=== PATIENT | male | born 1950 | race Caucasian/White ===

== ENCOUNTER 2023-03-26 13:00 | Outpatient (AMB) | payer BC, SELFPAY ==
--- NOTE | 2023-03-26 13:03 | MHC.AM.SUB ---
Intake Vital Signs 03/26/23 13:09 03/26/23 14:02 BP 170/98 H 130/78 Blood Pressure Location Lt radial Lt radial Position Sitting Sitting Pulse 82 Pulse Source Pulse Oximeter Pulse Oximetry (%) 98 Oxygen Delivery Method Room Air Intake Visit Reasons: MAT Intake Intake Note: the patient presents for a mat intake Metal Checker Required: No Allergies No Known Allergies Allergy (Verified 03/26/23 13:49) Do you need a note to return to daycare/school/sports/work: No HPI MAT Intake HPI Details Patient presents for intake and evaluation of alcohol use He reports his wants him to stop drinking Drinking btwn 2-4 drinks almost every day since the age of 22 Denies any history of withdrawal or negative impact on his responsibilities However, he does have some chronic health issues which started his wifes concern Medical History: -All providers in [facility], including primary care -Reports dx of CKD (unknown stage), -Reports liver disease --not yet cirrhosis per his report -Reports recent cardiac stent placement unable to obtain full med list as patient did not recall all of his medications or their doses He does note the following: clopiderol atorvastatin effexor valsartan/hydro BH History: -reporting recurrent depression -numerous medication trials (12 per his report) No history of treatment for alcohol withdrawal Social History - and retired -3 children (one son still lives with them) 33 with down syndrome Discussed goals related to this visit and patient reporting he was unsure. Quite guarded during his visit. Reporting that he would like to have more control of my drinking, if I have one beer I don't automatically want to have a second Inquired if he has tried any strategies to address this and he has not. Discussed possibly having a glass of water or some other beverage before opening another beer. Patient interested in medication options, reviewed medications for alcohol use disorder and patient would like to trial Naltrexone Reviewed dosing, side effects and goals of treatment Several times during visit patient alluded to his controlling everything in his life. This marketing writer inquired if he has discussed this with her as making changes in his life, including stopping drinking, can be challenging if he is not committed to it for himself. *Patient inquiring if this marketing writer would be sending notes to his other providers. Informed patient that this would not be an issue if he provided a SONYA and where to send notes. Patient voiced displeasure with this. Review of Systems Const Reports as per HPI Psych Reports depression and Reports irritability Physical Exam Vital Signs: Last Vital Signs Pulse 82 03/26/23 13:09 BP 130/78 03/26/23 14:02 Pulse Ox 98 03/26/23 13:09 Oxygen Delivery Method Room Air 03/26/23 13:09 Const General: cooperative and healthy appearing Nutritional Appearance: average body habitus Orientation/consciousness: patient oriented x3 Limitations: no limitations Neuro General: patient oriented x3 Psych Appearance: well kempt Speech and movement: Clear speech present Affect: Blunted affect present Attitude: Guarded attititude/behavior present Assessment & Plan Assessment & Plan (1) Alcohol use disorder, mild, abuse: Code(s): F10.10 - Alcohol abuse, uncomplicated Plan: trial naltrexone --while not recommended with liver disease, in this case the benefits outweigh the risk follow up 3 weeks provided information on TMS --for depression Medications: New naltrexone take 1/2 tab daily for 3 days then increase to one tab daily 50 mg PO DAILY 30 tabs 0RF Coding Level of Care Code New Pt Level 4 (47600) Diagnoses Alcohol use disorder, mild, abuse F10.10
[2023-03-26 13:09] VITALS: BP 170/98; PULSE 82; O2SAT 98
[2023-03-26 14:02] VITALS: BP 130/78
== END 2023-03-26 14:05 | disposition home or self-care (01) ==
PROVIDERS: Visit Provider Nurse Practitioner Psychiatric/Mental Health
DX: F10.10 Alcohol abuse, uncomplicated (principal)
CPT/HCPCS: 99204

== ENCOUNTER → 2023-03-26 13:00 | Outpatient (BNVA) | payer BC, SELFPAY | PROVIDERS: Visit Provider Nurse Practitioner Psychiatric/Mental Health ==

== ENCOUNTER 2023-05-26 10:02 | Outpatient (AMB) | payer MEDICARE, SELFPAY ==
--- NOTE | 2023-05-26 10:06 | A.OFFVISCC_ITS ---
Intake Vital Signs 05/26/23 10:12 BP 134/82 Blood Pressure Location Lt radial Position Sitting Pulse 80 Pulse Source Pulse Oximeter Pulse Oximetry (%) 99 Oxygen Delivery Method Room Air Intake Visit Reasons: MAT Intake Note: the patient presents for a mat visit Health And Wellness Advisor Required: No Allergies No Known Allergies Allergy (Verified 05/26/23 10:07) Medication List - Last Reconciled 05/26/23 by Carolyn Brown NP aspirin 81 mg PO DAILY atorvastatin 40 mg PO DAILY clopidogrel 75 mg PO DAILY hydrochlorothiazide 50 mg PO DAILY naltrexone 50 mg PO DAILY venlafaxine 100 mg PO DAILY Do you need a note to return to daycare/school/sports/work: No HPI MAT HPI Details Patient presents for AUD treatment and follow up Reports he feels as though the naltrexone has cut down the need or his desire for alcohol Reports he does not need as much to achieve same effects Does not feel his drinking is problematic, reports his has a problem with his drinking He has resorted to hiding it from her because she nags and then she gets upset when she notices the level in his bottles is decreasing with his alcohol use He wants better control with his drinking but is unable to elaborate or identify any clear cut goals He continues to have 2-3 drinks daily. Slightly guarded and difficult to engage Review of Systems Const Reports as per HPI Physical Exam Vital Signs: Last Vital Signs Pulse 80 05/26/23 10:12 BP 134/82 05/26/23 10:12 Pulse Ox 99 05/26/23 10:12 Oxygen Delivery Method Room Air 05/26/23 10:12 Const General: cooperative and no acute distress Resp Effort & Inspection: normal respiratory effort Psych Appearance: grossly normal Mental Status: mental status grossly normal Speech and movement: Slowed speech present (Psych) Affect: Blunted affect present Attitude: Guarded attititude/behavior present Results AMB 14 Panel Urine Drug Screen Urine Marijuana (THC) Negative Last Edit by Hanh Walsh CMA on 05/26/23 10:14 Urine Cocaine Negative Last Edit by Hanh Walsh CMA on 05/26/23 10:14 Urine Morphine Negative Last Edit by Hanh Walsh CMA on 05/26/23 10:14 Urine Methamphetamine Negative Last Edit by Hanh Walsh CMA on 05/26/23 10:14 Urine Amphetamine Negative Last Edit by Hanh Walsh CMA on 05/26/23 10:1 4 Urine Benzodiazepine Negative Last Edit by Hanh Walsh CMA on 05/26/23 10:14 Urine Barbiturates Negative Last Edit by Hanh Walsh CMA on 05/26/23 10: 14 Urine Methadone Negative Last Edit by Hanh Walsh CMA on 05/26/23 10:14 Urine Buprenorphine Negative Last Edit by Hanh Walsh CMA on 05/26/23 10 :14 Urine Tricyclic Antidepressant Negative Last Edit by Hanh Walsh CMA on 05/26/23 10:14 Urine MDMA Negative Last Edit by Hanh Walsh CMA on 05/26/23 10:14 Urine Oxycodone Negative Last Edit by Hanh Walsh CMA on 05/26/23 10:14 Urine Phencyclidine Negative Last Edit by Hanh Walsh CMA on 05/26/23 10 :14 Urine Propoxyphene Negative Last Edit by Hanh Walsh CMA on 05/26/23 10: 14 Results Reviewed Results Reviewed: Laboratory Last Values POC Urine Buprenorphine Negative 05/26/23 10:13 POC Urine Morphine Negative 05/26/23 10:13 POC Urine Oxycodone Negative 05/26/23 10:13 POC Urine Methadone Negative 05/26/23 10:13 POC Urine Propoxyphene Negative 05/26/23 10:13 POC Urine Barbiturates Negative 05/26/23 10:13 POC U Tricyclic Antidpr Negative 05/26/23 10:13 POC Urine PCP Negative 05/26/23 10:13 POC Ur Amphetamines Negative 05/26/23 10:13 POC Ur Methamphetamine Negative 05/26/23 10:13 POC Urine MDMA Negative 05/26/23 10:13 POC Ur Benzodiazepine Negative 05/26/23 10:13 POC Urine Cocaine Negative 05/26/23 10:13 POC Ur Marijuana (THC) Negative 05/26/23 10:13 Assessment & Plan Assessment & Plan (1) Alcohol use disorder, mild, abuse: Code(s): F10.10 - Alcohol abuse, uncomplicated Plan: -Discussed harm reduction techniques -Encouraged him to be honest with his about how he feels about her persistent nagging -Education provided about folic acid and thiamine, script sent to pharmacy -No naltrexone refill due at this time -Follow up 1 month Orders: Orders AMB 14 Panel Urine Drug Screen Today Z51.81 - Encounter for therapeutic drug level monitoring Medications: New thiamine HCl (vitamin B1) 100 mg PO DAILY 30 tabs 3RF folic acid 1 mg PO DAILY 30 tabs 3RF Coding Level of Care Code Est Pt Level 3 (23249) Diagnoses Alcohol use disorder, mild, abuse F10.10
[2023-05-26 10:12] VITALS: BP 134/82; PULSE 80; O2SAT 99
== END 2023-05-26 10:40 | disposition home or self-care (01) ==
PROVIDERS: Visit Provider Nurse Practitioner Family
DX: Z51.81 Encounter for therapeutic drug level monitoring (principal); F10.10 Alcohol abuse, uncomplicated
CPT/HCPCS: 99213

== ENCOUNTER → 2023-05-26 10:02 | Outpatient (BNVA) | payer MEDICARE, SELFPAY | PROVIDERS: Visit Provider Nurse Practitioner Family | DX: F10.10 Alcohol abuse, uncomplicated (principal); Z51.81 Encounter for therapeutic drug level monitoring; Z79.899 Other long term (current) drug therapy | CPT/HCPCS: 80305; 99212 ==

== ENCOUNTER 2023-07-24 09:03 | Outpatient (AMB) | payer MEDICARE, SELFPAY ==
--- NOTE | 2023-07-24 09:26 | MHC.AM.SUB ---
Intake Visit Reasons: MAT Tele Allergies No Known Allergies Allergy (Verified 05/26/23 10:07) [facility] HPI MAT Tele: Details: Patient presents for appointment via telehealth States he has been consuming 2-3 mixed drinks every night when he cooks, estimated approx 1.5-2 shots per drink. States he will also occasionally have a beer after working outside in the garden. Reports he has filled his naltrexone twice, but has felt there has been no noticeable difference in alcohol use/cravings States he wants more control over his drinking, but does not want to stop, states his has been critical of his alcohol use and this has resulted in some marital strife. Has recently started marriage counseling. Review of Systems Const Reports as per [facility] Telehealth Telehealth Telehealth Platform: Telephone Location of provider rendering services: practice address Location of patient: address on file Patient Identification confirmed using: Name, : Yes Telehealth method: voice only Patient verbally consented to treatment: Yes Patient verbally consented to billing insurance company: Yes Patient informed of any privacy concerns related to visit: Yes Minutes spent on Phone/Video with Pt.: 25 Assessment & Plan Assessment & Plan (1) Alcohol use disorder, mild, abuse: Code(s): F10.10 - Alcohol abuse, uncomplicated Category: Medical Plan: -Discussed harm reduction techniques, advised him to try and substitute one of his drinks with a non-alcoholic drink -Provided him with psych prescriber resources, discussed the possibility of a bridge clinic referral should he obtain an appt with an outpatient psych prescriber -Reviewed with him not to rely on naltrexone alone, he is not interested in AA at this time or other recovery supports -Follow up as needed: pt unsure if he wants to continue care with [facility] after obtaining a psych prescriber
== END 2023-07-24 09:29 | disposition home or self-care (01) ==
PROVIDERS: Visit Provider Nurse Practitioner Family
DX: F10.10 Alcohol abuse, uncomplicated (principal)
CPT/HCPCS: 99443

== ENCOUNTER → 2023-07-24 09:03 | Outpatient (BNVA) | payer MEDICARE, SELFPAY | PROVIDERS: Visit Provider Nurse Practitioner Family ==

== ENCOUNTER 2024-04-06 12:49 | Outpatient (AMB) | payer MEDICARE, SELFPAY ==
--- NOTE | 2024-04-06 12:53 | A.OFFVIS_ITS ---
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 He describes his pains as sharp in nature. He has had cortisone injections in the past which gave him fairly good relief. He denies any locking or giving way. He wishes to hold off on surgery if at all possible. today as a new patient for evaluation of bilateral knee pain. know: saw at [facility], gave him injections MRI/PT/INJ: right knee aspiration? bilateral knee injections? sx/Injury: neither Allergies No Known Allergies Allergy (Verified 04/06/24 12:54) Medication List - Last Reconciled 04/06/24 by Dane Michaud MD atorvastatin 40 mg PO DAILY clopidogrel 75 mg PO DAILY folic acid 1 mg PO DAILY hydrochlorothiazide 50 mg PO DAILY naltrexone 50 mg PO DAILY thiamine HCl (vitamin B1) 100 mg PO DAILY venlafaxine 100 mg PO DAILY Physical Exam Vital Signs: BMI result Body Mass Index 27.2 Const Other: Well-nourished well-developed very friendly male awake alert and oriented x3 in no acute distress Extrem Other: Bilateral knee examination shows minimal effusions, palpable crepitus with range of motion, pain with range of motion, no instability Office Procedures AMB Joint Injection/Aspiration Joint Injection/Aspiration Primary Site: left knee Prep: site was prepped using aseptic technique Injected: 40 mg of, DepoMedrol and 1% plain lidocaine Procedure: The patient tolerated the procedure well Coding 31018 - Large joint Procedure code (CPT) selection complete AMB Joint Injection/Aspiration Joint Injection/Aspiration Primary Site: right knee Prep: site was prepped using aseptic technique Injected: 40 mg of, DepoMedrol and 1% plain lidocaine Procedure: The patient tolerated the procedure well Coding 82479 - Large joint Procedure code (CPT) selection complete Results Reviewed Results Reviewed: X-rays of the patient's bilateral knee show joint space narrowing chondral sclerosis, no acute bony abnormalities Assessment & Plan Assessment & Plan (1) Right knee pain: Code(s): M25.561 - Pain in right knee Category: Medical (2) Osteoarthritis of left knee: Code(s): M17.12 - Unilateral primary osteoarthritis, left knee Category: Medical (3) Osteoarthritis of right knee: Code(s): M17.11 - Unilateral primary osteoarthritis, right knee Category: Medical Plan Mr. Haney presents with bilateral knee pains due to osteoarthritis. The risks and benefits of bilateral knee cortisone injections were discussed at length with the patient. The patient wished to proceed. He tolerated the injections well. He will continue with his exercise program. He will contact me prior to his follow-up appointment in 3 months should any questions or concerns arise. Feel free to call me at any time should questions regarding his orthopedic management arise. I spent 21 minutes in reviewing the patient's records and imaging studies, seeing the patient and documenting in the medical record. Orders: Orders XR knee RT 3V Today M25.561 - Pain in right knee XR knee LT 3V Today M25.562 - Pain in left knee AMB Joint Injection/Aspiration Today M17.12 - Unilateral primary osteoarthritis, left knee AMB Joint Injection/Aspiration Today M17.11 - Unilateral primary osteoarthritis, right knee Coding Level of Care Code Est Pt Level 3 (92212) Complex EM visit Add On G2211 Diagnoses Right knee pain M25.561 Osteoarthritis of left knee M17.12 Osteoarthritis of right knee M17.11 CPT Codes Coding - 06047 Large joint: 45374 - Large joint ([id number]) Coding - 98692 Large joint: 21781 - Large joint ([id number])
[2024-04-06 13:12] VITALS: BMI 27.2
--- OUTSIDE RECORDS SUMMARY | 2024-04-06 14:10 | XMS_ITS | Continuity of Care Document ---
Author Organization [facility] Address [address] [place] [address]- Care Team Providers Care Blender/Braze Applicator Name Role Phone Mart Pimentel MD Primary Care Physician Encounter [facility] Date(s): 02/16/24 - 03/17/[address] [address] Encounter Type: Triage Allergies, Adverse Reactions, Alerts No Known Allergies Immunizations Given and Recorded Vaccine Date Status Refusal Reason influenza virus vaccine, inactivated 1 01/04/07 Gi rehan 1Admin Note: VIS 09/14/06 GIVEN TO PATIENT. Medications atorvastatin 20 mg oral tablet 1 tablet = 20 mg, By Mouth, Daily, # 30 tablet, 3 Refills, Maintenance, 11/06/22 10:18:00 AM EDT, Tablet, Partial fill upon patient request if the prescription is for a schedule II opioid drug. Start Date: 11/06/22 Stop Date: 03/06/23 Status: Ordered Quantity: 30.0 Unit: tablet Repeat number: 4 Indication: Essential (primary) hypertension clopidogrel 75 mg oral tablet 75 mg, 1, tablet, By Mouth, Daily, Call if any significant bleeding, # 90 tablet, Refills 3, Tot. Refills 3, Maintenance, 12/02/23 1:36:00 PM EDT, Route to Pharmacy Electronically, [facility]/pharmacy #[id number],Partial fill upon patient request if the prescription is for a schedule II opioid drug., 178, cm, 10/26/23 11:20:00 EDT, Height Start Date: 12/02/23 Stop Date: 11/26/24 Status: Ordered Quantity: 90.0 Unit: tablet Repeat number: 4 Indication: Essential (primary) hypertension duloxetine 60 mg oral enteric coated capsule TAKE 1 CAPSULE BY MOUTH EVERY DAY Start Date: 10/26/23 Status: Ordered Repeat number: 1 hydrochlorothiazide-valsartan 12.5 mg-160 mg oral tablet 1 tablet, By Mouth, Daily, # 30 tablet, 3 Refills, Maintenance, 11/03/23 2:45:00 PM EDT, Tablet, [id number], Partial fill upon patient request if the prescription is for a schedule II opioid drug., 1 tablet By Mouth Daily,x30 days, 178, cm, 10/26/23 11:20:00 EDT, Height Start Date: 11/03/23 Stop Date: 03/02/24 Status: Ordered Quantity: 30.0 Unit: tablet Repeat number: 4 nitroglycerin 0.4 mg sublingual tablet 1 tablet = 0.4 mg, Sublingual, Every 5 minutes, PRN for chest pain, # 100 tablet, 3 Refills, Maintenance, 11/06/22 10:43:00 AM EDT, Tablet, [id number], Partial fill upon patient request if the prescription is for a schedule II opioid drug., 172, cm, 11/06/22 9:54:00 EDT, Height Start Date: 11/06/22 Stop Date: 03/06/23 Status: Ordered Quantity: 100.0 Unit: tablet Repeat number: 4 Indication: Essential (primary) hypertension testosterone 20.25 mg/actuation (1.62%) transdermal gel APPLY 2 PUMPS DAILY TO ARM AVOID GEL EXPOSURE TO CHILDREN OR WOMEN Start Date: 10/26/23 Status: Ordered Repeat number: 1 Problem List Condition Confirmation Course Effective Dates Status H ealth Status Informant Depression Confirmed Active Elevated blood pressure Confirmed Active Epicondylitis Confirmed 2005 Active Hemorrhoids Confirmed Active Tinea unguium Confirmed Active Social History Social History Type Response Smoking Status Former smoker, quit more than 30 days ago entered on: 02/09/23 Sex Sex Representation Male (finding) Patient Care team information Care Team Personnel Name: Mart Pimentel MD Position: [facility] Physician - Pediatrics Member Role: PCP Address: [address] [place] [address] Telecom: Care Team Related Persons Name: FERN DODD Name: KARISSA DODD Name: CHARLES WOODS Insurance Providers Guarantor name: WHITLEY DODD Health Plan Information #: 1 Payer: KALLI Member Number: NA Policy Number: NA Group Number: NA
--- OUTSIDE RECORDS SUMMARY | 2024-04-06 14:10 | XMS_ITS | Clinical Summary ---
Author Organization [facility] Facility Address [address] [address] Care Team Providers Care Attendant Coin Operated Laundry Name Role Phone Mart Pimentel MD Primary Care Provider Allergies Active Allergy Reactions Criticality Noted Date Comments Bupropion Other (see comments) 05/17/2020 Lisinopril Other (see comments) 05/17/2020 Medications atorvastatin (LIPITOR) 20 MG tablet Take 20 mg by mouth 1 (one) time each day Active clopidogrel (PLAVIX) 75 MG tablet Take 75 mg by mouth 1 (one) time each day Active folic acid (FOLVITE) 1 MG tablet Take 1 mg by mouth 1 (one) time each day Active valsartan-hydro CHLOROthiazide (DIOVAN-HCT) 160-25 MG per tablet Take 1 tablet by mouth 1 (one) time each day Active DULoxetine (CYMBALTA) [address] capsule Active Jardiance 10 MG tablet TAKE 1 TABLET BY MOUTH IN THE MORNING 30 tablet 5 12/22/2023 Active Active Problems Problem Noted Date Diagnosed Date Epicondylitis 05/22/2021 Hemorrhoid 05/22/2021 Hypertensive disorder 05/22/2021 Stage 3a chronic kidney disease 05/22/2021 Arthritis of knee 09/07/2020 Effusion of joint of right knee 09/07/2020 Stage 3b chronic kidney disease 06/15/2020 Renal osteodystrophy 06/15/2020 Hypertensive chronic kidney disease 06/15/2020 Benign essential hypertension 05/17/2020 Chronic kidney disease stage 3 05/17/2020 Serum creatinine above reference range Immunizations Name Administration Dates Next Due Influenza, Unspecified 01/04/2007 Family History Medical History Relation Comments Heart disease Father Hypertension Father Relation Status Comments Father Social History Tobacco Use Types Packs/Day Years Used Date Smoking Tobacco: Former Cigarettes Q uit: 03/02/1988 Smokeless Tobacco: Never Alcohol Use Standard Drinks/Week Comments Yes 0 (1 standard drink = 0.6 oz pure alcohol) Alcoholic Drinks/day: 3 or more drinks per day Sex and Gender Information Value Date Recorded Sex Assigned at Not on file Legal Sex Male 4:52 PM EST Gender Identity Not on file Sexual Orientation Not on file Last Filed Vital Signs Vital Sign Reading Time Taken Comments Blood Pressure 142/80 11/19/2023 2:08 PM EDT Pulse 78 11/19/2023 2:08 PM EDT Temperature - - Respiratory Rate - - Oxygen Saturation 97% 11/19/2023 2:08 PM EDT Inhaled Oxygen Concentration - - Weight 83.5 kg (184 lb) 11/19/2023 2:08 PM EDT Height 175.3 cm (5' 9 ) 05/19/2019 12:00 PM EDT Body Mass Index 27.17 05/19/2019 12:00 PM EDT Plan of Treatment Upcoming Encounters Date Type Department Care Team (Late st Contact Info) Description 11/17/2024 1:00 PM EDT Office Visit [facility] [address] [place] [phone] Dallas Flannery MD [address] [phone] Health Maintenance Due Date Last Done Comments Pneumococcal Vaccine: 65+ Ye ars (1 of 2 - PCV) 1957 Colorectal Cancer Screening: Annual FOBT 2000 Colorectal Cancer Screening: Colonoscopy 2000 Colorectal Cancer Screening: Sigmoidoscopy 2000 Influenza Vaccine (#1) 2023 01/04/2007 Hepatitis B Vaccine Aged Out No longe r eligible based on patient's age to complete this topic Insurance [facility] Care Teams Attendant Coin Operated Laundry Relationship Specialty Start Date End Date Mart Pimentel MD PCP - General 03/12/20
--- OUTSIDE RECORDS SUMMARY | 2024-04-06 14:10 | XMS_ITS | Clinical Summary ---
Author Organization [facility] Address [address] [place] [address] Care Team Providers Care Computational Scientist Name Role Phone Mart Pimentel MD Primary Care Provider [phone] Allergies Active Allergy Reactions Criticality Noted Date Comments Bupropion Other (See Comments) 05/17/2020 Lisinopril Other (See Comments) 05/17/2020 Medications Medication Sig Dispensed Refills Start Date End Date Status escitalopram (LEXAPRO) tablet 10 mg Take 1 tablet by mouth. 0 Active valsartan-hydroCHLORO thiazide (DIOVAN-HCT) 320-25 MG per tablet 0 08/23/2020 Acti ve HYDROcodone-acetamino phen (NORCO) 5-325 MG per tablet 1-2 tabs p.o. every 6 hours as needed for pain. May fill for lesser quantity. 20 tablet 0 11/09/2020 Active valsartan (DIOVAN) tablet 320 mg Take 320 mg by mouth. 0 12/08/2012 Active citalopram (CeleXA) 20 MG tablet Take 20 mg by mouth. 0 12/08/2012 Active Active Problems Problem Noted Date Diagnosed Date Effusion of right knee joint 08/16/2021 Patellofemoral arthritis of right knee Effusion of right knee joint 09/07/2020 Social History Tobacco Use Types Packs/Day Years Used Date Smoking Tobacco: Never Assessed Sex and Gender Information Value Date Recorded Sex Assigned at Not on file Gender Identity Not on file Sexual Orientation Not on file Job Start Date Occupation Industry Not on file Not on file Not on file Last Filed Vital Signs Vital Sign Reading Time Taken Comments Blood Pressure - - Pulse - - Temperature - - Respiratory Rate - - Oxygen Saturation - - Inhaled Oxygen Concentration - - Weight 89.8 kg (198 lb) 08/16/2021 12:48 PM EDT Height 175.3 cm (5' 9 ) 08/16/2021 12:48 PM EDT Body Mass Index 29.24 08/16/2021 12:48 PM EDT Plan of Treatment Health Maintenance Due Date Last Done Comments Hepatitis C Screening 1950 COVID-19 Vaccine (#1) 1951 Depression Screening 1963 Preventative Health Evaluation 1969 DTap / Tdap / Td (1 - Tdap) 1970 Colon Cancer Screening (Colonoscopy) 1996 Shingrix-Zoster Vaccine (1 of 2) 2001 Fall Risk Assessment 2016 Pneumococcal Vaccine (1 of 1 - PCV) 2016 Influenza Vaccine (#1) 2023 01/04/2007 RSV Adult > 60+ Yrs or Pregn ant (1 - 1-dose 75+ series) 2026 Hepatitis B Vaccines Aged Out No long er eligible based on patient's age to complete this topic RSV Ped < 20 months Aged Out No longe r eligible based on patient's age to complete this topic Care Teams Computational Scientist Relationship Specialty Start Date End Date Mart Pimentel MD [address] [place] [address] PCP - General Internal Medicine 09/10/20
--- OUTSIDE RECORDS SUMMARY | 2024-04-06 14:10 | XMS_ITS | Continuity of Care Document ---
Author Organization [facility] Address [address] [address]- [facility] Name Relationship Address Phone WHITLEY DODD Personal Relationship Unknown Unavailable KARISSA DODD spouse Unknown Unavailable PEGGY, CHARLES unrelated friend Unknown Unavaila ble MIRAYENNI, FERN child Unknown Unavailable Care Team Providers Care Waiter/Waitress Tavern Name Role Phone Mart Pimentel MD Primary Care Physician Encounter [facility] Date(s): 02/17/24 - 03/18/[address] [address] Attending Physician: Anna Montiel Admitting Physician: Anna Montiel Referring Physician: AdmtrAnna Encounter Type: Triage Allergies, Adverse Reactions, Alerts [...] PM EDT, Route to Pharmacy Electronically, [facility]/pharmacy #[id number],Partial fill upon patient request if the prescription [...] Team Personnel Name: Mart Pimentel MD Position: [facility] Physician - Pediatrics Member Role: PCP Address: [address] [place], [place] [address] [address]- Telecom: Care Team Related Persons Name: FERN DODD Name: KARISSA DODD Name: CHARLES WOODS Insurance Providers Guarantor name: WHITLEY DODD Health Plan Information #: 1 Payer: NA Member Number: NA Policy Number: NA Group Number: NA
--- OUTSIDE RECORDS SUMMARY | 2024-04-06 14:10 | XMS_ITS | Continuity of Care Document ---
Author Organization [facility] Address [address] [place] [address] Care Team Providers Care Granulator Name Role Phone Mart Pimentel MD Primary Care Physician [phone] [place] [facility] [place] 02/11/24 - 03/12/24 [facility] [address] [place] [address] Encounter Type: Triage Allergies, Adverse Reactions, Alerts [...] 1:36:00 PM EDT, Route to Pharmacy Electronically, [facility]/pharmacy #[id number],Partial fill upon patient request if the prescription [...] Refills, Maintenance, 11/03/23 2:45:00 PM EDT, Tablet, [facility]/pharmacy #[id number], Partial fill upon patient request if [...] Refills, Maintenance, 11/06/22 10:43:00 AM EDT, Tablet, [facility]/pharmacy #[id number], Partial fill upon patient request if [...] Team Personnel Name: Mart Pimentel MD Position: [facility] Physician - Pediatrics Member Role: PCP Address: [address] [place] [address]- Telecom: Care Team Related Persons Name: FERN DODD Name: KARISSA DODD Name: CHARLES WOODS Insurance Providers Guarantor name: WHITLEY DODD [facility] Plan Information #: 1 Payer: NA Member Number: NA Policy Number: NA Group Number: NA
== END 2024-04-06 13:57 | disposition home or self-care (01) ==
PROVIDERS: Visit Provider Orthopaedic Surgery
DX: M17.0 Bilateral primary osteoarthritis of knee (principal)
CPT/HCPCS: 20610; 99213

== ENCOUNTER → 2024-04-06 12:51 | Outpatient (BNV) | payer MEDICARE, SELFPAY | PROVIDERS: Visit Provider Specialist | DX: M25.562 Pain in left knee (principal); M25.561 Pain in right knee | CPT/HCPCS: 73562 ==

== ENCOUNTER 2024-04-06 13:00 | Outpatient (REF) | payer MEDICARE, SELFPAY ==
--- NOTE | ~2024-04-06 | XR_ITS ---
CLINICAL HISTORY: M25.561 - Pain in right knee 3 view right knee Comparison: None Findings: Bones intact. No dislocations. No significant arthritic change or erosions. No joint effusion. No radiopaque foreign body. There is regional arterial calcification. IMPRESSION: 1. No acute findings. This document has been electronically signed by: Angel Luis Atkins MD on 04/08/2024 08:04:34
--- NOTE | ~2024-04-06 | XR_ITS ---
CLINICAL HISTORY: M25.562 - Pain in left knee 3 view left knee Comparison: None Findings: No fractures or dislocations. No significant loss of joint space, osteophytes, or erosions. No joint effusion. No radiopaque foreign body. There is regional arterial calcification. IMPRESSION: 1. No acute findings. This document has been electronically signed by: Angel Luis Atkins MD on 04/08/2024 08:04:48
== END 2024-04-06 13:01 | disposition home or self-care (01) ==
LOC: HO.HOSX 13:00
PROVIDERS: Visit Provider Orthopaedic Surgery
DX: M25.562 Pain in left knee (principal); M25.561 Pain in right knee; M17.0 Bilateral primary osteoarthritis of knee
CPT/HCPCS: 20610; 73562; 99212; J1010; J2003

== ENCOUNTER 2024-06-14 09:47 | Outpatient (AMB) | payer MEDICARE, SELFPAY ==
[2024-06-14 09:50] VITALS: BMI 27.2
--- NOTE | 2024-06-14 09:50 | MHC.OFFVIS ---
Vital Signs 06/14/24 09:50 Height 5 ft 9 in Weight 184 lb BMI 27.2 Intake Visit Reasons: New prob-B/L thumb arthritis Intake Note: Dmitry 74 yr old male right hand dominant male presents today for a new problem visit for bilateral thumb O.A pain. Right is worse. States he is having trouble opening jars and gripping. States pain is on his CMC joint and MCP. Hx of injections in the past. States his last one was about 3-4 years ago. States injection gave him temporary relief. He is also having locking to his right ring finger. Denies numbness or tingling, Allergies No Known Allergies Allergy (Verified 06/14/24 09:56) HPI HPI New prob-B/L thumb arthritis: Details: Dmitry is a 74 year old right hand dominant man who presents with complaints of bilateral basal joint OA. He complains of pain at the base of his thumbs, R>L, worse with pinching or gripping activities. He says he struggles to open jars or perform similar actions due to his pain. He complains of being more bothered by sudden sharp pain with activities, opposed to a constant ache. He also complains of occasional painful locking of his right index & ring fingers. He says he has a Hx of injections in the past, at an outside clinic. His last injections were in ~1220-3674, with good relief. He denies any numbness or tingling. 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 [facility] Social History (Updated 06/14/24 @ 09:57 by Bushra Pacheco [facility]) Current occupational status: retired Current occupation: rt hand Review of Systems Const All systems reviewed & are unremarkable except as noted in HPI and below Physical Exam Vital Signs: BMI result Body Mass Index 27.2 Const General: cooperative, healthy appearing and no acute distress Orientation/consciousness: patient oriented x3 HEENT Head: Yes normocephalic and Yes atraumatic Eyes EOM: EOMs intact bilaterally Resp Effort & Inspection: normal respiratory effort and able to speak in complete sentences Cardio Jugular venous distension: no JVD Skin General skin exam: turgor normal Rashes: no rashes Neuro General: patient oriented x3 Extrem Other: Evaluation of Bilateral Upper Extremity: The patient is alert, oriented, and in no acute distress Neuro: Median, Ulnar, Radial nerves motor and sensory intact and sensation is normal to the tips of all digits Vascular: Cap refill brisk ROM: He can make a fist and extend all his digits No locking or catching seen today in clinic Tightness over dorsum of both thumbs when flexing his thumbs Skin: No lacerations or abrasions. General: No Ecchymosis. No Erythema or evidence of infection. Mild tenderness over the basal joints bilaterally Pos shoulder sign Pos CMC grind No tenderness over the MCP joint No tenderness over the 1st dorsal compartment Negative Cabrera test bilaterally No tenderness over the a1 kavin Radiographs: 3 views of the right hand, with attention to the thumb, were taken and viewed by me today in clinic. They show basal joint arthritis with joint space narrowing, subchondral sclerosis, and early osteophyte formation. 3 views of the left hand, with attention to the thumb, were taken and viewed by me today in clinic. They show basal joint arthritis with joint space narrowing, subchondral sclerosis, and early osteophyte formation. Psych Appearance: grossly normal Affect: normal affect Attitude: cooperative Office Procedures AMB Fracture Care Details: No fracture, injection Fracture Billing Code: Fracture Billing Code Assessment & Plan Assessment & Plan (1) Arthritis of carpometacarpal (CMC) joint of right thumb: Code(s): M18.11 - Unilateral primary osteoarthritis of first carpometacarpal joint, right hand Category: Medical (2) Arthritis of carpometacarpal (CMC) joint of left thumb: Code(s): M18.12 - Unilateral primary osteoarthritis of first carpometacarpal joint, left hand Category: Medical Plan Assessment & Plan: 1. Right basal joint osteoarthritis This is his primary complaint today I educated him about this condition I discussed operative and non-operative treatment options The patient would like to proceed with an injection, beginning with his right side I discussed activity modification, they should limit or avoid any heavy or repetitive pinching or gripping activities He says he has a comfort cool brace at home, he should wear this with daily activities. I ordered OT hand therapy to work on ROM, stretching, & normalizing function. Injection #1: The risks and benefits of a steroid injection including but not limited to risk of damage to blood vessels, nerve, tendon, infection, skin bleaching, persistent or worsening pain, and failure to improve symptoms were discussed with the patient and they wish to proceed with the steroid injection. Once consent was obtained the skin over the dorsum of the Right basal joint was sterilely prepped. The joint was then injected with a combination of 1 mL of (40 mg/ml} Depo-Medrol and 1% plain Lidocaine. The patient appears to have tolerated the procedure well and with no complications. He had good early relief before leaving clinic today. He knows that they may not have another steroid injection into this joint for least 4 months. 2. Left basal joint osteoarthritis He will follow up prn for this Scribed for Natalie Boss MD by Gutierrez Clifton, medical editor, on 06/14/24 at 10:05 AM, EST. Orders: Orders OT Evaluation and Treatment Today M18.11 - Unilateral primary osteoarthritis of first carpometacarpal joint, right hand, M18.12 - Unilateral primary osteoarthritis of first carpometacarpal joint, left hand XR hand RT min 3V Today M79.641 - Pain in right hand XR hand LT min 3V Today M79.642 - Pain in left hand Coding Level of Care Code New Pt Level 4 (90269) Diagnoses Arthritis of carpometacarpal (CMC) joint of right thumb M18.11 Arthritis of carpometacarpal (CMC) joint of left thumb M18.12 CPT Codes Fracture Care - Fracture Billing Code: Fracture Billing Code ([id number])
--- OUTSIDE RECORDS SUMMARY | 2024-06-14 11:13 | XMS_ITS ---
Author Organization [facility] Address [address] [address] Care Team Providers Care Logistic Specialist Name Role Phone GIANCARLO BISHOP [phone] Prudencio ROSADO, Dallas Villagomez Unavailable REASON FOR VISIT Patient question/information Encounters Encounter Location Date Provider Diagnosis [facility] [address] [address] 11/09/2023 GIANCARLO BISHOP Plan Of Treatment No Information Progress Notes * WHITLEY DODD PDOB:1950 (73 yo M)Acc No.[id number]:11/09/2023 Patient:?WHITLEY DODD :1950???Age:73 Y???Sex:Male Address:[address] [place] [address] [place], [address] * true * Date:? Generated for Printi toni/Yuridia/eTransmitting on:?06/14/2024 11:13 AM EDT
--- OUTSIDE RECORDS SUMMARY | 2024-06-14 11:13 | XMS_ITS | Clinical Summary ---
Author Organization [facility] Address [address] [place] [address] Care Team Providers Care Ship Yard Electrical Person Name Role Phone Mart Pimentel MD Primary Care Provider [phone] Allergies Active Allergy Reactions Criticality Noted Date [...] age to complete this topic Care Teams Ship Yard Electrical Person Relationship Specialty Start Date End Date Mart Pimentel MD [address] [place] [address] PCP - General Internal Medicine 09/10/20
--- OUTSIDE RECORDS SUMMARY | 2024-06-14 11:13 | XMS_ITS | Clinical Summary ---
Author Organization [facility] Address [address] [address] Care Team Providers Care Bench Lathe Operator Name Role Phone Mart Pimentel MD Primary [...] 05/17/2020 Serum creatinine above reference range Immunizations Immunization Administration Dates Next Due Influenza, Unspecified 01/04/2007 [...] Visit [facility] [address] [place] [address] Dallas Flannery MD [address] [phone] Health Maintenance Due Date Last Done Comments Pneumococcal Vaccine: 50+ Ye ars (1 of 2 - PCV) 1970 Colorectal Cancer Screening: Annual FOBT 2000 Colorectal Cancer Screening: Colonoscopy 2000 Colorectal Cancer Screening: Sigmoidoscopy 2000 Influenza Vaccine (Season Ended) 2024 01/05/20 07 Hepatitis B Vaccine Aged Out No longe r eligible based on patient's age to complete this topic Insurance [facility] Care Teams Bench Lathe Operator Relationship Specialty Start Date End Date Mart Pimentel MD PCP - General 03/12/20
--- OUTSIDE RECORDS SUMMARY | 2024-06-14 11:14 | XMS_ITS | Patient Health Record ---
Author Organization [facility] Address [address] [place] [address] Care Team Providers Care Learning Disabilities Teacher Name Role Phone GIANCARLO HEWITT [phone] Dallas Flannery MD Unavailable Reason For Referral No Information Problems Problem Type SNOMED Code ICD Code Onset Dates Problem Status W/U Status Risk Notes Problem Chronic kidney disease stage 3 (disorder) (128053017) Chronic kidney disease, stage 3 unspecified (N18.30) 07/22/2022 Active confirmed Encounters Encounter Location Date Provider Diagnosis [facility] [address] [place] [phone] 08/10/2023 GIANCARLO HEWITT Chronic kidney disease, stage 3 unspecified N18.30 [facility] [address] [place] [phone] 07/01/2023 GIANCARLO HEWITT [facility] [address] [place] [phone] 07/08/2023 GIANCARLO HEWITT [facility] [address] [place] [phone] 07/29/2023 GIANCARLO HEWITT [facility] [address] [place] [phone] 07/30/2023 GIANCARLO HEWITT [facility] [address] [place] [phone] 08/10/2023 GIANCARLO HEWITT [facility] [address] [place] [phone] 08/14/2023 GIANCARLO HEWITT [facility] [address] [place] [phone] 11/09/2023 GIANCARLO HEWITT Assessments Encounter Date Diagnosis (ICD Code) Assessment Notes Treatment Notes Treatment Clinical Notes Section Notes 08/10/2023 Chronic kidney disease, stage 3 unspecified (ICD-10 - N18.30) Assessment / Plan We spent the first part of our discussion talking about [facility] and our goals. I emphasized that we focus on education and support for patients with kidney issues by connecting them with our navigators, who have personal and family experience with kidney disease. I explained that while we will discuss the status of his/her kidneys, nothing we are doing is a substitute for visits to nephrology and/or primary care physician. 1. CKD 3b. The exact cause is unknown, attributed to hypertension He sees Dr. Flannery regularly and has had a negative/normal work up (details not available to me) and kidney biopsy has specifically not been recommended. -We discussed potential dietary interventions for CKD last time. 2. Kidney Failure Risk: KFRE 0.98% and 3.04 at 2 and 5 years based on eGFR 44 and UACR 121 (not clear 121 is correct -- sap functional analyst error in notes). UACR needs repeat. 3. Kidney transplant candidacy: Apparent alcoholic use disorder will be a barrier, until he achieves remission. His liver disease when last assessed appears mild and shouldn't prevent txp unless it has progressed. More assessment would also be needed about his depression. 4. Reported alcoholic use disorder. and depression *He has made some progress and is discussing AA meetings with his counseslor. *He would like to see someone to discuss alternative agents to venlafaxine but has had trouble finding someone. At least one told him that he wasn't accepted to the practice for unclear reasons. Demetrice will work with him and [facility] to try to identify a psychiatrist or psychopharmacologist in his area that is 'in network' and accepting new patients. Our education and discussion will focus on: The importance of monitoring kidney function: GFR and Urine Albumin Creatinine Ratio Preventing progression of kidney disease through diet, and avoidance of nephrotoxins like IV contrast dye and other stressors such as dehydration that can cause Acute kidney injury Acidosis Management: keeping CO2 > 20-21 with plant based eating, Bicarbonate supplementation. Use of medications,on the basis of reduced GFR Importance of ongoing exercise Importance of regular follow up with primary vamp creaser Should renal function deteriorate, we can expand our discussion to: Transplant as a method of treating kidney failure vs living donor transplant Techniques to reduce waiting time: (1) Living donor search; (2) acceptance of KDPI >85% kidneys; (3) acceptance of HCV+ kidneys; (4) listing out of region. Postponing dialysis Pro's and con's of different forms of dialysis Indications to start dialysis Avoiding crash dialysis Incremental dialysis: twice a week vs three times per week Importance of preserving renal function even after dialysis starts Conservative management of advanced CKD, without dialysis Value of Support Groups Giancarlo Hewitt MD Plan Of Treatment No Information Insurance Providers Payer Name Payer Address Payer Phone Subscriber Number Group Number Insured Name Patient Relationship to Insured Coverage Start Date Coverage End Date [facility] [employer]age [id number] [place] [address] [id number] WHITLEY DODD Self - patient is the insured
--- OUTSIDE RECORDS SUMMARY | 2024-06-14 11:14 | XMS_ITS ---
Author Organization [facility] Address [address] [address] Care Team Providers Care Gauge And Weigh Machine Adjuster Name Role Phone HEMANT HEWITT Unavailable [phone] Prudencio ROSADO, [place] Unavailable Unavailable REASON FOR VISIT [facility] Follow Up Visit, (age) year old with with kidney disease for education and counseling regarding chronic kidney disease management including transplant as an option. Encounters Encounter Location Date Provider Diagnosis [facility] [address] [address] 08/10/2023 HEMANT HEWITT Chronic kidney disease, stage 3 unspecified N18.30 Assessments Encounter Date Diagnosis (ICD Code) Assessment Notes Treatment Notes Treatment Clinical Notes Section Notes 08/10/2023 Chronic kidney disease, stage 3 unspecified (ICD-10 - N18.30) Assessment / Plan We spent the first part of our discussion talking about [facility] and our goals. I emphasized that we [...] 121 (not clear 121 is correct -- power builder developer error in notes). UACR needs repeat. 3. [...] reasons. Demetrice will work with him and [facility] to try to identify a [...] Importance of regular follow up with primary synthetic staple extruder Should renal function deteriorate, we can expand [...] CKD, without dialysis Value of Support Groups Hemant Hewitt MD Plan Of Treatment Next Appt Details Follow Up: 6 Months, Reason: Progress Notes * WHITLEY DODD PDOB:1950 (73 yo M)Acc No.[id number]:08/10/2023 Patient:ALDOMONAEMARIA L LanierEL Ann Provider:?Hemant Hewitt MD :1950???Age:73 Y???Sex:Male Fei e:08/10/2023 Address:[address] [place] [address], [place], [id number] Structured Data:eGFR Current - VALUE : 62; eGFR Current - DATE : 07/28/2023; eGFR Lowest - VALUE : 44; eGFR Lowest - DATE : 06/10/2022; Referral to txplt cntr : No; LISTED EVER for Transplant : No; Ever On Dialysis : No Subjective: * Chief Complaints: * ???[facility] Follow Up Visit(ag e) year old with with kidney disease for education and counseling regarding chronic kidney disease management including transplant as an option. * HPI: ???Structured Data Questions:? Patient and I had an education visit regarding advanced chronic kidney disease. Visit was conducted by HIPAA compliant telehealth platform. The patient is located in [place]. The patient is a participant in our program with [facility], Medicare Advantage. The patient consented to participation in the program and to a telehealth visit. The patient was notified that I am affiliated with [employer]. ID/CC?73 year old with with kidney disease for education and counseling regarding chronic kidney disease management including transplant as an option. Follow up Visit He is referred through [facility] program. Demetrice Gallagher is the navigator. 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 It took a few phone calls but he and Demetrice finally connected and Juanjose thanked her for her persistance? We discussed his recent appointment with Dr. Flannery on 05/19/2023 Dr. Flannery recommended an SGLT2 inhibitor which he is now taking? RE: alcohol use disorder: *Juanjose tried naltrexone. He was hoping it would curb his cravings for alcohol.?He said it made him dizzy and he has discontinued it. *He has begun to see a counselor, both with his and recently alone. He says he likes the esther who he describes as a Episcopalian ex-alcoholic. *Juanjose says he might even be willing to attend an AA meeting with this counselor, which feels big. *He has not followed up with GI, where the recommendation that he discontinue drinking came from.? He wonders if the damage detected to his liver might have been from prior in his life, when he reports he drank more heavily than he does now.? His mood is stable, he says. He says he is not a happy jovial person but that has been true for a long time. Venlafaxine has affected his ability to sleep, dose has been reduced.?This has prescribed by PCP.? He doesn't think it helps with some symptoms, but does help with reducing nangry feelings. His therapy has been wide ranging -- on his marriage, etc.?? He reports no psychiatric hospitalizations. He gets abdominal discomfort followed by bowel urgency, which seems to be after eating lactose, continue lactose free diet.? Denies CP, SOB, ALMENDAREZ, Orthopnea, headache. He believes he has developed lactose intolerance. Functional Status -- good. 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 Memory - feels it might be slipping a little Diet - lactose free. Moderation in everything. Nephrologic History CKD 3, cause unknown, risk factor = HTN. He thinks some doctors thinks alcohol contributed. -Believes he heard his kidneys were abnormal for 10-15 years. -He had an ultrasound in the past approx 2 years ago. He had liver as well. -R Kidney 11 cm, L kidney 10.7, both with normal echotexture, on 11/2020 abdo ultrasound -Sees Dr. [place] Flannery Additional Medical History Hypertension x 30-40 years. 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 -He saw Dr. Rick and Dr. Burrows (gastroenterology) at [facility] and was given the recommendation to 'stop drinking'. He felt he wasn't given help achieving this. -Ultrasound on showed mildly echogenic and heterogeneous echotexture. The impression was probably due to fatty change. Dr. Rick's letter of September 2020 says, the ultrasound suggests the possibility of cirrhosis . September 05, [address] Burrows says that on the ultrasound, there was no clear evidence of nodularity and his FIB-4 score reveals a low fibrosis but not a 0 score. -EGD on 11/2020 without varices Medications / Supplements Valsartan Jardiance? 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 Tob quit 35 years; ETOH couple of beers before dinner / southern comforts after; Cannabis/MJ none Drugs none. Family History Father - sudden age 68 Mother - age 80+; s/p CABG; alzheimers Sister with Down's 'natural causes' Sister age 74 -- with HTN and macular degeneration 3 boys, age 33, 30, and 26. They are in good health. Middle one Naga with Down's, works at [employer]. 3 grandchildren. No kidney issues in family Data 07/28/2023 GFR 62?? 05/19/2023 GFR 44, creatinine 1.49 prot/creat ratio 81 mg? 09/26/2022 GFR 53 06/10/2022 GFR 44 02/07/2022 GFR 56 05/01/2020 GFR 47 01/13/2021 GFR 55 Gluc 105? GGT 74. * Medical History:? * Medications:? Objective: * Vitals:? * Examination: ???General Examination: ???Physical Exam PE Height / Weight - Wt 186.? Maximum 195. before he retired.?? TBD Constitutional -General Appearance: Normal -Level of Distress: None - Ambulation: normal Psychiatric: -Insight: Good -Mental Status: Awake and alert with good recall and insight. -Orientation: to person, place, date -Memory: excellent. Assessment: * Assessment: 1.?Chronic kidney disease, s tage 3 unspecified - N18.30 (Primary)? Assessment / Plan We spent the first part of our discussion talking about [facility] and our goals. I emphasized that [...] 121 (not clear 121 is correct -- power builder developer error in notes). UACR needs repeat. 3. [...] reasons. Demetrice will work with him and [facility] to try to identify a [...] Acute kidney injury Acidosis Management: keeping CO2 >20-21 with plant based eating, Bicarbonate supplementation. Use of medications,on the basis of reduced GFR Importance of ongoing exercise Importance of regular follow up with primary synthetic staple extruder Should renal function deteriorate, we can expand [...] CKD, without dialysis Value of Support Groups Hemant Hewitt MD. Plan: * Treatment: * Procedure Codes:? * Follow Up:?6 Months * Billing Information: * Visit Code:? 18877 Office Visit, Est Pt., Level 4. Modifiers: 95 * Procedure Codes:? * Sign off status: Completed true * Provider:?Hemant Hewitt MD Date:?08/10/19 24 Generated for Lance toni/Yuridia/eTlatasmitting on:?06/14/2024 11:13 AM EDT History and Physical Notes * HPI (History of Present Illness) Category Sub-Category Detail Notes Category Not es Structured Data Questions Patient and I had an education visit regarding advanced chronic kidney disease. Visit was conducted by HIPAA compliant telehealth platform. The patient is located in [place]. The patient is a participant in our program with [facility], Medicare Advantage. The patient consented to participation in the program and to a telehealth visit. The patient was notified that I am affiliated with [employer]. ID/CC 73 year old with with kidney disease for education and counseling regarding chronic kidney disease management including transplant as an option. Follow up Visit He is referred through [facility] program. Demetrice Gallagher is the navigator. 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 It took a few phone calls but he and Demetrice finally connected and Juanjose thanked her for her persistance We discussed his recent appointment with Dr. Flannery on 05/19/2023 Dr. Flannery recommended an SGLT2 inhibitor which he is now taking RE: alcohol use disorder: *Juanjose tried naltrexone. He was hoping it would curb his cravings for alcohol. He said it made him dizzy and he has discontinued it. *He has begun to see a counselor, both with his and recently alone. He says he likes the esther who he describes as a Episcopalian ex-alcoholic. *Juanjose says he might even be willing to attend an AA meeting with this counselor, which feels big. *He has not followed up with GI, where the recommendation that he discontinue drinking came from. He wonders if the damage detected to his liver might have been from prior in his life, when he reports he drank more heavily than he does now. His mood is stable, he says. He says he is not a happy jovial person but that has been true for a long time. Venlafaxine has affected his ability to sleep, dose has been reduced. This has prescribed by PCP. He doesn't think it helps with some symptoms, but does help with reducing nangry feelings. His therapy has been wide ranging -- on his marriage, etc. He reports no psychiatric hospitalizations. He gets abdominal discomfort followed by bowel urgency, which seems to be after eating lactose, continue lactose free diet. Denies CP, SOB, ALMENDAREZ, Orthopnea, headache. He believes he has developed lactose intolerance. Functional Status -- good. 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 Memory - feels it might be slipping a little Diet - lactose free. Moderation in everything. Nephrologic History CKD 3, cause unknown, risk factor = HTN. He thinks some doctors thinks alcohol contributed. -Believes he heard his kidneys were abnormal for 10-15 years. -He had an ultrasound in the past approx 2 years ago. He had liver as well. -R Kidney 11 cm, L kidney 10.7, both with normal echotexture, on 11/2020 abdo ultrasound -Sees Dr. [place] Flannery Additional Medical History Hypertension x 30-40 years. 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 -He saw Dr. Rick and Dr. Burrows (gastroenterology) at [facility] and was given the recommendation to 'stop drinking'. He felt he wasn't given help achieving this. -Ultrasound on showed mildly echogenic and heterogeneous echotexture. The impression was probably due to fatty change. Dr. Rick's letter of September 2020 says, the ultrasound suggests the possibility of cirrhosis . September 05, [address] Burrows says that on the ultrasound, there was no clear evidence of nodularity and his FIB-4 score reveals a low fibrosis but not a 0 score. 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 Tob quit 35 years; ETOH couple of beers before dinner / southern comforts after; Cannabis/MJ none Drugs none. Family History Father - sudden age 68 Mother - age 80+; s/p CABG; alzheimers Sister with Down's 'natural causes' Sister age 74 -- with HTN and macular degeneration 3 boys, age 33, 30, and 26. They are in good health. Middle one Naga with Down's, works at [employer]. 3 grandchildren. No kidney issues in family Data 07/28/2023 GFR 62 05/19/2023 GFR 44, creatinine 1.49 prot/creat ratio 81 mg 09/26/2022 GFR 53 06/10/2022 GFR 44 02/07/2022 GFR 56 05/01/2020 GFR 47 01/13/2021 GFR 55 Gluc 105 GGT 74 Examination Category Sub-Category Detail Notes Category Not es General Examination Physical Exam PE Height / Weight - Wt 186. Maximum 195. before he retired. TBD Constitutional -General Appearance: Normal -Level of Distress: None -Ambulation: normal Psychiatric: -Insight: Good -Mental Status: Awake and alert with good recall and insight. -Orientation: to person, place, date -Memory: excellent
--- OUTSIDE RECORDS SUMMARY | 2024-06-14 11:14 | XMS_ITS ---
Author Organization [facility] [employer] [facility] Address [address] [address] Care Team Providers Care Call Centre Supervisor Name Role Phone GIANCARLO BISHOP [phone] Prudencio ROSADO, [place] Villagomez Unavailable REASON FOR VISIT Insurance Encounters Encounter Location Date Provider Diagnosis [facility] [employer] [address] [address] 08/14/2023 GIANCARLO BISHOP Plan Of Treatment No Information Progress Notes * WHITLEY DODD PDOB:1950 (73 yo M)Acc No.[id number]:08/14/2023 Patient:?WHITLEY DODD :1950???Age:73 Y???Sex:Male Address:[address] [place], [place] [address], [address] * true * Date:? Generated for Printi toni/Yuridia/eTransmitting on:?06/14/2024 11:13 AM EDT
== END 2024-06-14 10:58 | disposition home or self-care (01) ==
LOC: HO.HOS 09:47
PROVIDERS: PCP Internal Medicine; Visit Provider Orthopaedic Surgery
DX: M18.0 Bilateral primary osteoarthritis of first carpometacarpal joints (principal)
CPT/HCPCS: 20600; 99204

== ENCOUNTER 2024-06-14 09:47 | Outpatient (REF) | payer MEDICARE, SELFPAY ==
--- NOTE | ~2024-06-14 | XR_ITS ---
EXAMINATION: XR HAND 3 OR MORE VIEWS LEFT HISTORY: M79.642 - Pain in left hand COMPARISON: There are no prior studies available for comparison. FINDINGS: Three views of the left hand are submitted. Osseous mineralization is normal. There is no fracture or dislocation. There is severe osteoarthritis of the 1st carpometacarpal joint, with joint space narrowing and osteophyte formation. The remaining joint spaces are maintained. There are vascular calcifications. XR/XR hand LT min 3V IMPRESSION: Osteoarthritis of the left hand as described. Electronically signed by: Govind Joseph MD 06/14/2024 12:43 PM EDT
--- NOTE | ~2024-06-14 | XR_ITS ---
EXAMINATION: XR HAND 3 OR MORE VIEWS RIGHT HISTORY: M79.641 - Pain in right hand COMPARISON: There are no prior studies available for comparison. FINDINGS: Three views of the right hand are submitted. Osseous mineralization is normal. There is no fracture or dislocation. There is severe osteoarthritis of the 1st carpometacarpal joint, with joint space narrowing and osteophyte formation. There is mild osteoarthritis of the interphalangeal joint of the thumb and the DIP joint of the index finger. There are vascular calcifications. XR/XR hand RT min 3V IMPRESSION: Osteoarthritis of the right hand as described. Electronically signed by: Govind Joseph MD 06/14/2024 12:42 PM EDT
--- OUTSIDE RECORDS SUMMARY | 2024-06-14 11:34 | XMS_ITS | Clinical Summary ---
Author Organization [facility] Address [address] [place] [address] Care Team Providers Care Production Cook Name Role Phone Mart Pimentel MD Primary Care Provider [phone] Allergies Active Allergy Reactions Criticality Noted Date [...] age to complete this topic Care Teams Production Cook Relationship Specialty Start Date End Date Mart Pimentel MD [address] [place] [address] PCP - General Internal Medicine 09/10/20
--- OUTSIDE RECORDS SUMMARY | 2024-06-14 11:34 | XMS_ITS | Clinical Summary ---
Author Organization [facility] Address [address] [address] Care Team Providers Care Celebrity Chef Entrepreneur Media Personality Name Role Phone Mart Pimentel MD Primary [...] Visit [facility] [address] [place] [address] [place] Flannery MD [address] [phone] Health Maintenance Due Date Last Done Comments Pneumococcal Vaccine: 50+ Ye ars (1 of 2 - PCV) 1970 Colorectal Cancer Screening: Annual FOBT 2000 Colorectal Cancer Screening: Colonoscopy 2000 Colorectal Cancer Screening: Sigmoidoscopy 2000 Influenza Vaccine (Season Ended) 2024 01/05/20 07 Hepatitis B Vaccine Aged Out No longe r eligible based on patient's age to complete this topic Insurance [facility] Care Teams Celebrity Chef Entrepreneur Media Personality Relationship Specialty Start Date End Date Mart Pimentel MD PCP - General 03/12/20
== END 2024-06-14 09:48 | disposition home or self-care (01) ==
LOC: HO.HOSX 09:47
PROVIDERS: PCP Internal Medicine; Visit Provider Orthopaedic Surgery
DX: M79.641 Pain in right hand (principal); M79.642 Pain in left hand; M18.0 Bilateral primary osteoarthritis of first carpometacarpal joints
CPT/HCPCS: 20600; 73130; 99202; J1010; J2003

== ENCOUNTER → 2024-06-14 10:01 | Outpatient (BNV) | payer MEDICARE, SELFPAY | PROVIDERS: PCP Internal Medicine; Visit Provider Radiology Diagnostic Radiology | DX: M19.041 Primary osteoarthritis, right hand (principal); M19.042 Primary osteoarthritis, left hand | CPT/HCPCS: 73130 ==

== ENCOUNTER 2024-07-05 14:42 | Outpatient (AMB) | payer MEDICARE, SELFPAY ==
[2024-07-05 14:49] VITALS: BMI 27.2
--- NOTE | 2024-07-05 14:49 | MHC.OFFVIS ---
Vital Signs 07/05/24 14:49 07/05/24 14:50 Height 5 ft 9 in 5 ft 9 in Weight 184 lb 184 lb BMI 27.2 27.2 Intake Visit Reasons: Right knee pain and giving way Intake Note: Dmitry is a 74 year old male who presents with complaints of progressively worsening bilateral knee pains and giving way, right greater than left. The patient describes his pain as sharp in nature. Most of the pain is along the medial aspect of his knee. He has had cortisone injections recently which gave him only temporary relief. He states that his right knee will give out several times per day. He has failed the last 6 weeks of conservative treatment which has included a home exercise program, physical therapy exercises, Tylenol and anti-inflammatory medicines. 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 Physical Exam Vital Signs: BMI result Body Mass Index 27.2 Const Other: Well-nourished well-developed very friendly male awake alert and oriented x3 in no acute distress Extrem Other: Bilateral knee examination shows minimal effusions, mild crepitus with range of motion, tenderness along his medial joint lines, positive Rakel's test, no instability Results Reviewed Results Reviewed: X-rays of the patient's bilateral knee show mild to moderate diffuse joint space narrowing, no acute bony abnormalities Assessment & Plan Assessment & Plan (1) Tear of medial meniscus of right knee: Code(s): S83.241A - Other tear of medial meniscus, current injury, right knee, initial encounter Category: Medical Plan Mr. Haney presents with bilateral knee pains and mechanical symptoms, right greater than left, most likely due to tearing of his medial menisci. Thus, I will send the patient for an MRI of his right knee for further evaluation. I will see him back once the MRI is completed to discuss the findings and treatment options. I spent 21 minutes in reviewing the patient's records and imaging studies, seeing the patient and documenting in the medical record. Orders: Orders MR knee RT wo con Today S83.241A - Other tear of medial meniscus, current injury, right knee, initial encounter Coding Level of Care Code Est Pt Level 3 (97879) Complex EM visit Add On G2211 Diagnoses Tear of medial meniscus of right knee S83.241A
[2024-07-05 14:50] VITALS: BMI 27.2
--- OUTSIDE RECORDS SUMMARY | 2024-07-05 15:58 | XMS_ITS ---
Author Organization [facility] [employer] [facility] Address [address] [address] Care Team Providers Care Topology Teacher Name Role Phone GIANCARLO BISHOP [phone] Prudencio ROSADO, [place] Villagomez Unavailable REASON FOR VISIT Patient question/information Encounters Encounter Location Date Provider Diagnosis [facility] [address] [address] 11/09/2023 GIANCARLO BISHOP Plan Of Treatment No Information Progress Notes * WHITLEY DODD PDOB:1950 (73 yo M)Acc No.[id number]:11/09/2023 Patient:?WHITLEY DODD :1950???Age:73 Y???Sex:Male Address:[address] [place], [place] [address], [address] * true * Date:? Generated for Printi toni/Yuridia/eTransmitting on:?07/05/2024 03:58 PM EDT
--- OUTSIDE RECORDS SUMMARY | 2024-07-05 15:59 | XMS_ITS ---
Author Organization [facility] Address [address] [address] Care Team Providers Care Payroll Clerk Name Role Phone HEMANT HEWITT Unavailable [phone] Prudencio ROSADO, [place] Unavailable Unavailable REASON FOR VISIT [facility] Follow Up Visit, (age) year old with with kidney disease for education and counseling regarding chronic kidney disease management including transplant as an option. Encounters Encounter Location Date Provider Diagnosis [facility] [address] [address] 08/10/2023 HEMANT HEWITT Chronic kidney disease, stage 3 unspecified N18.30 Assessments Encounter Date Diagnosis (ICD Code) Assessment Notes Treatment Notes Treatment Clinical Notes Section Notes 08/10/2023 Chronic kidney disease, stage 3 unspecified (ICD-10 - N18.30) Assessment / Plan We spent the first part of our discussion talking about [facility] and our goals. I emphasized that we [...] 121 (not clear 121 is correct -- sporting goods salesperson error in notes). UACR needs repeat. 3. [...] reasons. Demetrice will work with him and [facility] to try to identify a psychiatrist or [...] Importance of regular follow up with primary line builder Should renal function deteriorate, we can expand [...] * WHITLEY DODD PDOB:1950 (73 yo M)Acc No.[id number]:08/10/2023 Patient:ALDOMONAEMARIA L LanierEL Ann Provider:?Hemant Hewitt MD :1950???Age:73 Y???Sex:Male Fei e:08/10/2023 Address:[address] [place] [address], [place], [id number] Structured Data:eGFR Current - VALUE : 62; eGFR Current - DATE : 07/28/2023; eGFR Lowest - VALUE : 44; eGFR Lowest - DATE : 06/10/2022; Referral to txplt cntr : No; LISTED EVER for Transplant : No; Ever On Dialysis : No Subjective: * Chief Complaints: * ???[facility] Follow Up Visit(ag e) year old with with kidney disease for education and counseling regarding chronic kidney disease management including transplant as an option. * HPI: ???Structured Data Questions:? Patient and I had an education visit regarding advanced chronic kidney disease. Visit was conducted by HIPAA compliant telehealth platform. The patient is located in [place]. The patient is a participant in our program with [facility], Medicare Advantage. The patient consented to participation in the program and to a telehealth visit. The patient was notified that I am affiliated with [employer]. ID/CC?73 year old with with kidney disease for education and counseling regarding chronic kidney disease management including transplant as an option. Follow up Visit He is referred through [facility] program. Demetrice Gallagher is the navigator. 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 *Juanjose says he might even be [...] has some spurs in thumb which limits computer game tester strength. Memory - feels it might be [...] Dr. Rick and Dr. 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 Tob quit 35 years; ETOH couple of [...] Middle one Naga with Down's, works at [employer]. 3 grandchildren. No kidney issues in family [...] first part of our discussion talking about [facility] and our goals. I emphasized that [...] 121 (not clear 121 is correct -- sporting goods salesperson error in notes). UACR needs repeat. 3. [...] reasons. Demetrice will work with him and [facility] to try to identify a psychiatrist or [...] Importance of regular follow up with primary line builder Should renal function deteriorate, we can expand [...] Months * Billing Information: * Visit Code:? 07628 Office Visit, Est Pt., Level 4. Modifiers: 95 * Procedure Codes:? * Sign off status: Completed true * Provider:?Hemant Hewitt MD Date:?08/10/19 24 Generated for Lance toni/Yuridia/eTlucho on:?07/05/2024 03:59 PM EDT History and Physical Notes * HPI (History of Present Illness) Category Sub-Category Detail Notes Category Not es Structured Data Questions Patient and I had an education visit regarding advanced chronic kidney disease. Visit was conducted by HIPAA compliant telehealth platform. The patient is located in [place]. The patient is a participant in our program with [facility], Medicare Advantage. The patient consented to participation in the program and to a telehealth visit. The patient was notified that I am affiliated with [employer]. ID/CC 73 year old with with kidney disease for education and counseling regarding chronic kidney disease management including transplant as an option. Follow up Visit He is referred through [facility] program. Demetrice Gallagher is the navigator. 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 *Juanjose says he might even be [...] has some spurs in thumb which limits computer game tester strength. Memory - feels it might be [...] Dr. Rick and Dr. 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 Tob quit 35 years; ETOH couple of [...] Middle one Naga with Down's, works at [employer]. 3 grandchildren. No kidney issues in family [...]
--- OUTSIDE RECORDS SUMMARY | 2024-07-05 15:59 | XMS_ITS ---
Author Organization [facility] [employer] [facility] Address [address] [address] Care Team Providers Care Elementary School Music Teacher Name Role Phone GIANCARLO BISHOP [phone] Prudencio ROSADO, [place] Villagomez Unavailable REASON FOR VISIT Insurance Encounters Encounter Location Date Provider Diagnosis [facility] [employer] [address] [address] 08/14/2023 GIANCARLO BISHOP Plan Of Treatment No Information Progress Notes * WHITLEY DODD PDOB:1950 (73 yo M)Acc No.[id number]:08/14/2023 Patient:?WHITLEY DODD :1950???Age:73 Y???Sex:Male Address:[address] [place], [place] [address], [phone] * true * Date:? Generated for Printi toni/Yuridia/eTransmitting on:?07/05/2024 03:59 PM EDT
--- OUTSIDE RECORDS SUMMARY | 2024-07-05 15:59 | XMS_ITS | Clinical Summary ---
Author Organization [facility] Address [address] [place] [address] Care Team Providers Care Hospital Corpsman Name Role Phone Mart Pimentel MD Primary Care Provider [phone] Allergies Active Allergy Reactions Criticality Noted Date [...] age to complete this topic Care Teams Hospital Corpsman Relationship Specialty Start Date End Date Mart Pimentel MD [address] [place] [address] PCP - General Internal Medicine 09/10/20
--- OUTSIDE RECORDS SUMMARY | 2024-07-05 15:59 | XMS_ITS | Continuity of Care Document ---
Author Organization [facility] Address [address] [place] [address]- Care Team Providers Care Babbitter Name Role Phone Mart Pimentel MD Primary Care Physician Encounter [facility] Date(s): 06/01/24 - 07/01/24 [facility] [address] [address] Encounter Type: Triage Allergies, Adverse [...] 1:36:00 PM EDT, Route to Pharmacy Electronically, [facility]/pharmacy #[id number],Partial fill upon patient request if the prescription [...] Refills, Maintenance, 11/03/23 2:45:00 PM EDT, Tablet, [facility]/pharmacy #[id number], Partial fill upon patient request if [...] H ealth Status Informant Depression Confirmed Active Dream enactment behavior Confirmed Active Elevated blood pressure Confirmed Active Epicondylitis Confirmed 2005 Active Hemorrhoids Confirmed Active Obstructive sleep apnea Confirmed Active Tinea unguium Confirmed Active Social History Social History Type Response Smoking Status Former smoker, quit more than 30 days ago entered on: 02/09/23 Sex Sex Representation Male (finding) Patient Care team information Care Team Personnel Name: Mart Pimentel MD Position: [facility] Physician - Pediatrics Member Role: PCP Address: [address] [place], [place] [address], [place] [address]- Telecom: Care Team Related Persons Name: FERN DODD Name: KARISSA DODD Name: CHARLES WOODS Insurance Providers Guarantor name: WHITLEY DODD Health Plan Information #: 1 Payer: [employer] PPO Member Number: NA Policy Number: NA Group Number: NA
--- OUTSIDE RECORDS SUMMARY | 2024-07-05 15:59 | XMS_ITS | Patient Health Record ---
Author Organization [facility] Address [address] [place] [phone] Care Team Providers Care Lumber Piler Operator Name Role Phone GIANCARLO HEWITT Unavailable [phone] [place] Flannery MD Unavailable Reason For Referral No Information Problems Problem Type SNOMED Code ICD Code Onset Dates Problem Status W/U Status Risk Notes Problem Chronic kidney disease stage 3 (disorder) (861924900) Chronic kidney disease, stage 3 unspecified (N18.30) 07/22/2022 Active confirmed Encounters Encounter Location Date Provider Diagnosis [facility] [address] [place] [phone] 08/10/2023 GIANCARLO HEWITT Chronic kidney disease, stage 3 unspecified N18.30 [facility] [address] [place] [phone] 07/08/2023 GIANCARLO HEWITT [facility] [address] [place] [phone] 07/29/2023 GIANCARLO HEWITT [facility] [address] [place] [phone] 07/30/2023 GIANCARLO HEWITT [facility] [address] [place] [phone] 08/10/2023 GIANCARLO HEWITT [facility] [address] [facility] [facility] [address] [place] [phone] 08/14/2023 GIANCARLO HEWITT [facility] [address] [address] [place] [phone] 11/09/2023 GIANCARLO HEWITT Assessments Encounter Date Diagnosis (ICD Code) Assessment Notes Treatment Notes Treatment Clinical Notes Section Notes 08/10/2023 Chronic kidney disease, stage 3 unspecified (ICD-10 - N18.30) Assessment / Plan We spent the first part of our discussion talking about [facility] and our goals. I emphasized that we [...] 121 (not clear 121 is correct -- catering barista error in notes). UACR needs repeat. 3. [...] reasons. Demetrice will work with him and [facility] to try to identify a [...] Importance of regular follow up with primary lacquer shader Should renal function deteriorate, we can expand [...] Insured Coverage Start Date Coverage End Date [facility] Medicare Advantage [id number] [place] [address] [id number] WHITLEY DODD Self - patient is the insured
--- OUTSIDE RECORDS SUMMARY | 2024-07-05 15:59 | XMS_ITS | Clinical Summary ---
Author Organization [facility] Address [address] [address] Care Team Providers Care Electronic Equipment Repairer Name Role Phone Mart Pimentel MD Primary Care Provider [phone] Allergies Active Allergy Reactions Criticality Noted Date [...] Visit [facility] [address] [place] [address] [place] Flannery [place] [address] [phone] Health Maintenance Due Date Last Done Comments Pneumococcal Vaccine: 50+ Ye ars (1 of 2 - PCV) 1970 Colorectal Cancer Screening: Annual FOBT 2000 Colorectal Cancer Screening: Colonoscopy 2000 Colorectal Cancer Screening: Sigmoidoscopy 2000 Influenza Vaccine (Season Ended) 2024 01/05/20 07 Hepatitis B Vaccine Aged Out No longe r eligible based on patient's age to complete this topic Insurance [facility] Care Teams Electronic Equipment Repairer Relationship Specialty Start Date End Date Mart Pimentel MD PCP - General 03/12/20
== END 2024-07-05 15:10 | disposition home or self-care (01) ==
LOC: HO.HOS 14:47
PROVIDERS: Visit Provider Orthopaedic Surgery
DX: S83.241A Other tear of medial meniscus, current injury, right knee, initial encounter (principal)
CPT/HCPCS: 99213; G2211

== ENCOUNTER → 2024-07-05 14:42 | Outpatient (BNVA) | payer MEDICARE, SELFPAY | PROVIDERS: Visit Provider Orthopaedic Surgery | DX: M25.562 Pain in left knee (principal); S83.241A Other tear of medial meniscus, current injury, right knee, initial encounter; X58.XXXA Exposure to other specified factors, initial encounter; Y93.9 Activity, unspecified; Y92.9 Unspecified place or not applicable; Y99.9 Unspecified external cause status | CPT/HCPCS: 99212 ==

== ENCOUNTER 2024-07-15 10:06 | Outpatient (RCR) | payer MEDICARE, SELFPAY ==
--- NOTE | 2024-07-18 11:38 | MHC.OT.DC ---
[address] [phone] F: [phone] Occupational Therapy Discharge Note Patient Name: Dmitry Ann Kimballgiovanni Provider: Natalie Boss Diagnosis: (B) CMC arthritis Date of Surgery: Date of Evaluation: 06/23/24 Date of Discharge: Treatments to Date: 4 Cancellations to Date: No Shows to Date: Discharge Status: Independent with HEP Patient Elected to Stop Discharge Summary: During the duration of skilled OT patient has decreased his pain level to a 3/10 pain in the (L)hand 0/10 pain in the (R), he reports the sharp pain has stopped. He also increased her (R) captain/check airman strength by 2lbs. He has been provided with AE and built up handles for ADL performance. He did purchase 1 comfort cool brace which he wears inconsistently. He is d/c'd form skilled OT services as he will not be able to attend his last appointment and would like this to be his last appointment. He has established his HEP and has uses he AE appropriately. Should patient require more appointments patient will call [facility]. Thank you for your referral. Electronically Signed By: FÉLIX Walker/Cat, CLAgueda Reviewed/agree with student documentation: Therapist: Please Sign and return to therapist, thank you for your referral.
== END 2024-07-18 11:38 | disposition home or self-care (01) ==
LOC: HO.OT 10:06
PROVIDERS: PCP Internal Medicine; Visit Provider Orthopaedic Surgery
DX: M18.0 Bilateral primary osteoarthritis of first carpometacarpal joints (principal)
CPT/HCPCS: 97035; 97110; 97140; 97165; 97535

== ENCOUNTER 2024-07-26 09:32 | Outpatient (AMB) | payer MEDICARE, SELFPAY ==
[2024-07-26 09:41] VITALS: BMI 27.2
--- NOTE | 2024-07-26 09:41 | MHC.OFFVIS ---
Vital Signs 07/26/24 09:41 Height 5 ft 9 in Weight 184 lb BMI 27.2 Intake Visit Reasons: Inj-Left thumb injection Intake Note: Dmitry 74 yr old male presents today for his left thumb basal joint injection. States he is experiencing the same pain he had in his right thumb and is hoping an injection could help with pain. Hx of right basal joint injection with Dr Boss on 06/14/24. Allergies No Known Allergies Allergy (Verified 07/26/24 09:42) HPI HPI Inj-Left thumb injection: Details: Dmitry is a 74 year old right hand dominant man who presents with complaints of bilateral basal joint OA. He is status post a right basal joint injection 1 month ago with some improvement. He is interested in having an left basal joint injection today. He complains of pain at the base of his thumbs, R>L, worse with pinching or gripping activities. He says he struggles to open jars or perform similar actions due to his pain. He complains of being more bothered by sudden sharp pain with activities, opposed to a constant ache. He says he has a Hx of injections in the past, at an outside clinic. His last injections were in ~1742-9728, with good relief. He denies any numbness or tingling. 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 He has positive shoulder signs bilaterally. The right basal joint was not particularly tender today. The left basal joint was tender and had a positive CMC grind. He can make a fist and extend all of his digits Sensation grossly intact to the tips of all digits. Good cap refill Radiographs: 3 views of the right hand, with attention to the thumb, were taken and viewed by me today in clinic. They show basal joint arthritis with joint space narrowing, subchondral sclerosis, and early osteophyte formation. 3 views of the left hand, with attention to the thumb, were taken and viewed by me today in clinic. They show basal joint arthritis with joint space narrowing, subchondral sclerosis, and early osteophyte formation. Office Procedures AMB Fracture Care Details: No fracture, injection Fracture Billing Code: Fracture Billing Code Assessment & Plan Assessment & Plan (1) Arthritis of carpometacarpal (CMC) joint of left thumb: Code(s): M18.12 - Unilateral primary osteoarthritis of first carpometacarpal joint, left hand Category: Medical (2) Arthritis of carpometacarpal (CMC) joint of right thumb: Code(s): M18.11 - Unilateral primary osteoarthritis of first carpometacarpal joint, right hand Category: Medical Plan Assessment & Plan: 1. Left basal joint osteoarthritis This is his primary complaint today I educated him about this condition I discussed operative and non-operative treatment options The patient would like to proceed with an injection, beginning with his right side I discussed activity modification, they should limit or avoid any heavy or repetitive pinching or gripping activities He says he has a comfort cool brace at home, he should wear this with daily activities. Last visit I ordered OT hand therapy to work on ROM, stretching, & normalizing function. Injection #1: The risks and benefits of a steroid injection including but not limited to risk of damage to blood vessels, nerve, tendon, infection, skin bleaching, persistent or worsening pain, and failure to improve symptoms were discussed with the patient and they wish to proceed with the steroid injection. Once consent was obtained the skin over the dorsum of the left basal joint was sterilely prepped. The joint was then injected with a combination of 1 mL of (40 mg/ml} Depo-Medrol and 1% plain Lidocaine. The patient appears to have tolerated the procedure well and with no complications. He had good early relief before leaving clinic today. He knows that they may not have another steroid injection into this joint for least 4 months. 2. Right basal joint osteoarthritis Status post injection on 06/14/2024 with good results. He knows that he must wait at least 4 months after each particular injection before he can have a repeat injection into that joint. Follow up PRN Coding Level of Care Code Est Pt Level 3 (34171) Diagnoses Arthritis of carpometacarpal (CMC) joint of left thumb M18.12 Arthritis of carpometacarpal (CMC) joint of right thumb M18.11 CPT Codes Fracture Care - Fracture Billing Code: Fracture Billing Code ([id number])
--- OUTSIDE RECORDS SUMMARY | 2024-07-26 10:06 | XMS_ITS ---
Author Organization [facility] [employer] [facility] [employer] [facility] Address [address] [address] Care Team Providers Care Direct Mail Manager Name Role Phone GIANCARLO BISHOP [phone] Prudencio ROSADO, [place] Villagomez Unavailable REASON FOR VISIT Unable to reach patient Encounters Encounter Location Date Provider Diagnosis [facility] [address] [address] 07/14/2024 GIANCARLO BISHOP Plan Of Treatment No Information Progress Notes * WHITLEY DODD PDOB:1950 (74 yo M)Acc No.[id number]:07/14/2024 Patient:?WHITLEY DODD :1950???Age:74 Y???Sex:Male Address:[address] [place] [address] [place], [address] * true * Date:? Generated for Jli toni/Yuridia/eTransmitting on:?07/26/2024 10:05 AM EDT
== END 2024-07-26 10:06 | disposition home or self-care (01) ==
LOC: HO.HOS 09:33
PROVIDERS: PCP Internal Medicine; Visit Provider Orthopaedic Surgery
DX: M18.0 Bilateral primary osteoarthritis of first carpometacarpal joints (principal)
CPT/HCPCS: 20600; 99213

== ENCOUNTER 2024-07-26 17:37 | Outpatient (REF) | payer MEDICARE, SELFPAY ==
--- NOTE | ~2024-07-26 | MR_ITS ---
CLINICAL HISTORY: S83.241A - Other tear of medial meniscus, current injury, right knee, in... MR right knee without contrast Comparison: DX - XR KNEE RT 3V - 04/06/24 13:02 EST Findings: Medial meniscus is intact. There is a tear of anterior horn/root of the lateral meniscus. The anterior cruciate ligament is increased in size and signal with cystic change measuring up to 2.0 cm. The posterior cruciate ligament is increased in signal at its space there is a cystic lesion measuring 8 mm. The medial and lateral collateral ligaments are intact. There is medial periligamentous edema. The extensor mechanism is intact. There is increased size and signal of the quadriceps tendon at its insertion upon the patella and within the patellar tendon at its insertion upon the patella and tibial tuberosity. Trace joint effusion. No Tejada's cyst. There is a small amount of edema in lateral femoral condyle at the posterior aspect. Small amount of subcortical edema in lateral tibial plateau. Trace amount of subcortical edema in lateral patellar facet There is tricompartmental chondromalacia which is most prominent in the lateral tibiofemoral compartment. Multifocal near-complete thickness cartilage loss is present in the lateral tibial plateau. Impression: Tear of the anterior horn and root of the lateral meniscus. Mucoid degeneration the anterior cruciate ligament with associated ganglion cysts. Increased signal in the posterior cruciate ligament may indicate mucoid degeneration, also with a ganglion cyst. Partial tear is considered less likely. Medial collateral ligament periligamentous edema may indicate minor sprain. Quadriceps and patellar tendinopathy. Trace joint effusion. Small amount of edema in the lateral femoral condyle at posterior aspect. Tricompartmental partial-thickness chondromalacia. Associated subcortical edema in lateral tibiofemoral and patellofemoral compartments. This document has been electronically signed by: Rosa Anderson MD on 07/27/2024 15:55:41
== END 2024-07-26 17:38 | disposition home or self-care (01) ==
LOC: HO.MRI 17:37
PROVIDERS: PCP Internal Medicine; Visit Provider Orthopaedic Surgery
DX: S83.241A Other tear of medial meniscus, current injury, right knee, initial encounter (principal)
CPT/HCPCS: 73721

== ENCOUNTER → 2024-07-26 17:45 | Outpatient (BNV) | payer MEDICARE, SELFPAY | PROVIDERS: PCP Internal Medicine; Visit Provider Radiology Diagnostic Radiology | DX: M23.241 Derangement of anterior horn of lateral meniscus due to old tear or injury, right knee (principal) | CPT/HCPCS: 73721 ==

== ENCOUNTER 2024-08-02 09:43 | Outpatient (AMB) | payer MEDICARE, SELFPAY ==
--- NOTE | 2024-08-02 09:51 | MHC.OFFVIS ---
Vital Signs 08/02/24 09:53 Height 5 ft 9 in Weight 184 lb BMI 27.2 Intake Visit Reasons: Bilateral knee pains Intake Note: Dmitry is a 74 year old male who presents with complaints of bilateral knee pains. He describes his pains as sharp in nature. Most of the pain is along the medial aspects of his knees. He has had cortisone injections in the past which gave him only temporary relief. He wishes to hold off on total knee replacement surgery for as long as possible. He has failed the last 3 months of conservative treatment. He has tried physical therapy exercises which aggravated his pain. 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 Physical Exam Vital Signs: BMI result Body Mass Index 27.2 Extrem Other: Bilateral knee examination shows pain with range of motion, no instability Results Reviewed Results Reviewed: X-rays of the patient's bilateral knee show joint space narrowing, subchondral sclerosis, no acute bony abnormalities MRI of the patient's right knee shows edema within the proximal tibia consistent with near complete cartilage loss and a small tear of the lateral meniscus Assessment & Plan Assessment & Plan (1) Osteoarthritis of left knee: Code(s): M17.12 - Unilateral primary osteoarthritis, left knee Category: Medical (2) Osteoarthritis of right knee: Code(s): M17.11 - Unilateral primary osteoarthritis, right knee Category: Medical Plan Mr. Haney presents with bilateral knee pains due to osteoarthritis. I had a lengthy discussion with the patient regarding the treatment options. Because of the severity of his degenerative changes I do not feel that an arthroscopic procedure which gave him significant relief. He wishes to hold off on total knee replacement surgery for as long as possible. I agree with this plan. I will see if the patient's insurance company will cover a viscosupplementation injection, such as Durolane, for both of his knees. I will see him back once the injections are available. Feel free to call me at any time should questions regarding his orthopedic management arise. I spent 22 minutes in reviewing the patient's records and imaging studies, seeing the patient and documenting in the medical record. Coding Level of Care Code Est Pt Level 3 (85647) Complex EM visit Add On G2211 Diagnoses Osteoarthritis of left knee M17.12 Osteoarthritis of right knee M17.11
[2024-08-02 09:53] VITALS: BMI 27.2
--- OUTSIDE RECORDS SUMMARY | 2024-08-02 10:52 | XMS_ITS | Clinical Summary ---
Author Organization [facility] Facility Address [address] [address] Care Team Providers Care Automotive Parts Specialist Name Role Phone Mart Pimentel MD Primary [...] Visit [facility] [address] [place] [address] Dallas Flannery MD [address] [phone] Health Maintenance Due Date Last Done Comments Pneumococcal Vaccine: 50+ Ye ars (1 of 2 - PCV) 1970 Colorectal Cancer Screening: Annual FOBT 2000 Colorectal Cancer Screening: Colonoscopy 2000 Colorectal Cancer Screening: Sigmoidoscopy 2000 Influenza Vaccine (Season Ended) 2024 01/05/20 07 Hepatitis B Vaccine Aged Out No longe r eligible based on patient's age to complete this topic Insurance [facility] Care Teams Automotive Parts Specialist Relationship Specialty Start Date End Date Matr Pimentel MD PCP - General 03/12/20
== END 2024-08-02 10:07 | disposition home or self-care (01) ==
LOC: HO.HOS 09:44
PROVIDERS: PCP Internal Medicine; Visit Provider Orthopaedic Surgery
DX: M17.0 Bilateral primary osteoarthritis of knee (principal)
CPT/HCPCS: 99213; G2211

== ENCOUNTER → 2024-08-02 09:43 | Outpatient (BNVA) | payer MEDICARE, SELFPAY | PROVIDERS: PCP Internal Medicine; Visit Provider Orthopaedic Surgery | DX: M17.0 Bilateral primary osteoarthritis of knee (principal) | CPT/HCPCS: 99212 ==

== ENCOUNTER 2024-08-30 11:31 | Outpatient (AMB) | payer MEDICARE, SELFPAY ==
--- NOTE | 2024-08-30 11:34 | MHC.OFFVIS ---
Vital Signs 08/30/24 11:35 Height 5 ft 9 in Weight 184 lb BMI 27.2 Intake Visit Reasons: Inj-Bilateral Knee Euflexxa #1 Intake Note: Dmitry is a 74 year old male who presents today for bilateral knee Euflexxa #1. He has not had a viscosupplementation injection in the past. He has had cortisone injections. 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 Physical Exam Vital Signs: BMI result Body Mass Index 27.2 Extrem Other: Bilateral knee examination shows minimal effusions, palpable crepitus with range of motion Office Procedures AMB Joint Injection/Aspiration Joint Injection/Aspiration Primary Site: left knee Prep: site was prepped using aseptic technique Injected: 20 mg of (Euflexxa viscosupplementation) and 1% plain lidocaine Procedure: The patient tolerated the procedure well Coding 00405 - Large joint Procedure code (CPT) selection complete AMB Joint Injection/Aspiration Joint Injection/Aspiration Primary Site: right knee Prep: site was prepped using aseptic technique Injected: 20 mg of (Euflexxa viscosupplementation) and 1% plain lidocaine Procedure: The patient tolerated the procedure well Coding 46034 - Large joint Procedure code (CPT) selection complete Assessment & Plan Assessment & Plan (1) Osteoarthritis of left knee: Code(s): M17.12 - Unilateral primary osteoarthritis, left knee Category: Medical (2) Osteoarthritis of right knee: Code(s): M17.11 - Unilateral primary osteoarthritis, right knee Category: Medical Plan Mr. Haney presents with bilateral knee pains due to osteoarthritis. The risks and benefits of a series of Euflexxa injections were discussed at length with the patient. The patient wishes to proceed. He tolerated the 1st set of injections well. He will follow up next week as scheduled. Feel free to call me at any time should questions regarding his orthopedic management arise. I spent 20 minutes in reviewing the patient's records and imaging studies, seeing the patient and documenting in the medical record. Orders: Orders AMB Joint Injection/Aspiration Today M17.12 - Unilateral primary osteoarthritis, left knee AMB Joint Injection/Aspiration Today M17.11 - Unilateral primary osteoarthritis, right knee Coding Level of Care Code Est Pt Level 3 (23284) Complex EM visit Add On G2211 Diagnoses Osteoarthritis of left knee M17.12 Osteoarthritis of right knee M17.11 CPT Codes Coding - 21242 Large joint: 29623 - Large joint ([id number]) Coding - 12899 Large joint: 15899 - Large joint ([id number])
[2024-08-30 11:35] VITALS: BMI 27.2
--- OUTSIDE RECORDS SUMMARY | 2024-08-30 12:46 | XMS_ITS | Clinical Summary ---
Author Organization [facility] Address [address] [place] [address] Care Team Providers Care Crank Hand Name Role Phone Mart Pimentel MD Primary Care Provider +1- [phone] Allergies Active Allergy Reactions Criticality Noted Date [...] of 1 - PCV) 2016 Influenza Vaccine (Season Ended) 2024 01/05/20 07 RSV Adult > 60+ Yrs or Pregn ant (1 - 1-dose 75+ series) 2026 Hepatitis B Vaccines Aged Out No long er eligible based on patient's age to complete this topic RSV Ped < 20 months Aged Out No longe r eligible based on patient's age to complete this topic Care Teams Crank Hand Relationship Specialty Start Date End Date Mart Pimentel MD [address] [place] [address] PCP - General Internal Medicine 09/10/20
--- OUTSIDE RECORDS SUMMARY | 2024-08-30 12:46 | XMS_ITS | Clinical Summary ---
Author Organization [facility] Facility Address [address] [address] Care Team Providers Care Sand Hauler Name Role Phone Mart Pimentel MD Primary [...] Visit [facility] [address] [place] [address] Dallas Flannery MD [address] [phone] Health Maintenance Due Date Last Done Comments Pneumococcal Vaccine: 50+ Ye ars (1 of 2 - PCV) 1970 Colorectal Cancer Screening: Annual FOBT 2000 Colorectal Cancer Screening: Colonoscopy 2000 Colorectal Cancer Screening: Sigmoidoscopy 2000 Influenza Vaccine (Season Ended) 2024 01/05/20 07 Hepatitis B Vaccine Aged Out No longe r eligible based on patient's age to complete this topic Insurance [facility] Care Teams Sand Hauler Relationship Specialty Start Date End Date Mart Pimentel MD PCP - General 03/12/20
--- OUTSIDE RECORDS SUMMARY | 2024-08-30 12:47 | XMS_ITS | Patient Health Record ---
Author Organization [facility] Address [address] [place] [address] Care Team Providers Care Paint Roller Winder Name Role Phone GIANCARLO BISHOP Unavailable [phone] Prudencio ROSADO, Dallas Villagomez Unavailable Reason For Referral No Information Problems Problem Type SNOMED Code ICD Code Onset Dates Problem Status W/U Status Risk Notes Problem Chronic kidney disease stage 3 (disorder) (403188070) Chronic kidney disease, stage 3 unspecified (N18.30) 07/22/2022 Active confirmed Encounters Encounter Location Date Provider Diagnosis [facility] [address] [place] [address] 11/09/2023 GIANCARLO BISHOP [facility] [address] [place] [address] 07/14/2024 GIANCARLO BISHOP [facility] [address] [place] [phone] 07/20/2024 GIANCARLO BISHOP [facility] [facility] [address] [address] [place] [phone] 07/21/2024 GIANCARLO BISHOP Plan Of Treatment No Information Insurance Providers Payer Name Payer Address Payer Phone Subscriber Number Group Number Insured Name Patient Relationship to Insured Coverage Start Date Coverage End Date [facility] Medicare Advantage [id number] [place] [address] [id number] WHITLEY DODD Self - patient is the insured
== END 2024-08-30 11:58 | disposition home or self-care (01) ==
LOC: HO.HOS 11:32
PROVIDERS: PCP Internal Medicine; Visit Provider Orthopaedic Surgery
DX: M17.0 Bilateral primary osteoarthritis of knee (principal)
CPT/HCPCS: 20610; 99213

== ENCOUNTER → 2024-08-30 11:31 | Outpatient (BNVA) | payer MEDICARE, SELFPAY | PROVIDERS: PCP Internal Medicine; Visit Provider Orthopaedic Surgery | DX: M17.12 Unilateral primary osteoarthritis, left knee (principal); M17.11 Unilateral primary osteoarthritis, right knee | CPT/HCPCS: 20610; 99212; J2003; J7323 ==

== ENCOUNTER 2024-09-08 10:08 | Outpatient (AMB) | payer MEDICARE, SELFPAY ==
--- NOTE | 2024-09-08 10:11 | MHC.OFFVIS ---
Vital Signs 09/08/24 10:29 Height 5 ft 9 in Weight 184 lb BMI 27.2 Intake Visit Reasons: Inj-Bilateral Knee Euflexxa #2 Intake Note: Dmitry is a 74 year old male who presents today for bilateral knee Euflexxa #2. 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 Haney presents with left knee pain due to osteoarthritis. The risks and benefits of a 2nd left knee Euflexxa injection were discussed at length with the patient. The patient wished to proceed. He tolerated the injection well. He will follow up next week as scheduled. Orders: Orders AMB Joint Injection/Aspiration Today M17.12 - Unilateral primary osteoarthritis, left knee Coding Level of Care Code Procedure Only Diagnoses Osteoarthritis of left knee M17.12
[2024-09-08 10:29] VITALS: BMI 27.2
--- OUTSIDE RECORDS SUMMARY | 2024-09-08 10:47 | XMS_ITS | Clinical Summary ---
Author Organization [facility] Address [address] [place] [address] Care Team Providers Care Document Control Supervisor Name Role Phone Mart Pimentel MD Primary Care Provider +1- [phone] Allergies Active Allergy Reactions Criticality Noted Date [...] 1 - PCV) 2016 Influenza Vaccine (#1) 2024 01/04/2007 RSV Adult > 60+ Yrs or Pregn ant (1 - 1-dose 75+ series) 2026 Hepatitis B Vaccines Aged Out No long er eligible based on patient's age to complete this topic RSV Ped < 20 months Aged Out No longe r eligible based on patient's age to complete this topic Care Teams Document Control Supervisor Relationship Specialty Start Date End Date Mart Pimentel MD [address] [place] [address] PCP - General Internal Medicine 09/10/20
--- OUTSIDE RECORDS SUMMARY | 2024-09-08 10:47 | XMS_ITS | Patient Health Record ---
Author Organization [facility] Address [address] [place] [address] Care Team Providers Care Levers Lace Machine Operator Name Role Phone GIANCARLO BISHOP Unavailable [phone] Prudencio ROSADO, Dallas Villagomez Unavailable Reason For Referral No Information Problems Problem Type SNOMED Code ICD Code Onset Dates Problem Status W/U Status Risk Notes Problem Chronic kidney disease stage 3 (disorder) (372932418) Chronic kidney disease, stage 3 unspecified (N18.30) 07/22/2022 Active confirmed Encounters Encounter Location Date Provider Diagnosis [facility] [address] [place] [address] 11/09/2023 GIANCARLO BISHOP [facility] [address] [place] [address] 07/14/2024 GIANCARLO BISHOP [facility] [address] [place] [phone] 07/20/2024 GIANCARLO BISHOP [employer] [facility] [address] [address] [place] [phone] 07/21/2024 GIANCARLO BISHOP Plan Of Treatment No Information Insurance Providers Payer Name Payer Address Payer Phone Subscriber Number Group Number Insured Name Patient Relationship to Insured Coverage Start Date Coverage End Date [facility] Medicare Advantage [id number] [place] [address] [id number] WHITLEY DODD Self - patient is the insured
--- OUTSIDE RECORDS SUMMARY | 2024-09-08 10:47 | XMS_ITS | Clinical Summary ---
Author Organization [facility] Facility Address [address] [address] Care Team Providers Care Executive Administrative Assistant Name Role Phone Mart Pimentel MD Primary [...] Visit [facility] [address] [address] [place] [address] Dallas Flannery MD [address] [phone] Health Maintenance Due Date Last Done Comments Pneumococcal Vaccine: 50+ Ye ars (1 of 2 - PCV) 1970 Colorectal Cancer Screening: Annual FOBT 2000 Colorectal Cancer Screening: Colonoscopy 2000 Colorectal Cancer Screening: Sigmoidoscopy 2000 Influenza Vaccine (#1) 2024 01/04/2007 Hepatitis B Vaccine Aged Out No longe r eligible based on patient's age to complete this topic Insurance [facility] Care Teams Executive Administrative Assistant Relationship Specialty Start Date End Date Mart Pimentel MD PCP - General 03/12/20
== END 2024-09-08 10:47 | disposition home or self-care (01) ==
LOC: HO.HOS 10:09
PROVIDERS: PCP Internal Medicine; Visit Provider Orthopaedic Surgery
DX: M17.12 Unilateral primary osteoarthritis, left knee (principal)
CPT/HCPCS: 20610

== ENCOUNTER → 2024-09-08 10:08 | Outpatient (BNVA) | payer MEDICARE, SELFPAY | PROVIDERS: PCP Internal Medicine; Visit Provider Orthopaedic Surgery | DX: M17.12 Unilateral primary osteoarthritis, left knee (principal) | CPT/HCPCS: 20610; J2003; J7323 ==

== ENCOUNTER 2024-09-15 14:57 | Outpatient (AMB) | payer MEDICARE, SELFPAY ==
[2024-09-15 15:02] VITALS: BMI 27.2
--- NOTE | 2024-09-15 15:02 | MHC.OFFVIS ---
Vital Signs 09/15/24 15:02 Height 5 ft 9 in Weight 184 lb BMI 27.2 Intake Visit Reasons: Inj-Bilateral Knee Euflexxa #3 Intake Note: Mr. Haney presents with complaints of bilateral knee pains. He states that he has gotten mild relief from the 1st 2 sets of Euflexxa injections. 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 Physical Exam Vital Signs: BMI result Body Mass Index 27.2 Extrem Other: Bilateral knee examination shows minimal effusions, palpable crepitus with range of motion, pain with range of motion, no instability Office Procedures AMB Joint Injection/Aspiration Joint Injection/Aspiration Primary Site: left knee Prep: site was prepped using aseptic technique Injected: 20 mg of (Euflexxa viscosupplementation) and 1% plain lidocaine Procedure: The patient tolerated the procedure well Coding 23266 - Large joint Procedure code (CPT) selection complete AMB Joint Injection/Aspiration Joint Injection/Aspiration Primary Site: right knee Prep: site was prepped using aseptic technique Injected: 20 mg of (Euflexxa viscosupplementation) and 1% plain lidocaine Procedure: The patient tolerated the procedure well Coding 01771 - Large joint Procedure code (CPT) selection complete Assessment & Plan Assessment & Plan (1) Osteoarthritis of left knee: Code(s): M17.12 - Unilateral primary osteoarthritis, left knee Category: Medical (2) Osteoarthritis of right knee: Code(s): M17.11 - Unilateral primary osteoarthritis, right knee Category: Medical Plan Mr. Haney presents with bilateral knee pains due to osteoarthritis. The risks and benefits of a 3rd set of bilateral knee Euflexxa viscosupplementation injections were discussed at length with the patient. The patient wished to proceed. Tolerated the injections well. He will continue with his home exercise program. He will follow up with me on an as-needed basis should his symptoms not plateau at an unacceptable level over the next few months. Feel free to call me at any time should questions regarding his orthopedic management arise. Orders: Orders AMB Joint Injection/Aspiration Today M17.11 - Unilateral primary osteoarthritis, right knee AMB Joint Injection/Aspiration Today M17.12 - Unilateral primary osteoarthritis, left knee Coding Level of Care Code Procedure Only Diagnoses Osteoarthritis of left knee M17.12 Osteoarthritis of right knee M17.11 CPT Codes Coding - 65959 Large joint: 59364 - Large joint ([id number]) Coding - 09073 Large joint: 55414 - Large joint ([id number])
--- OUTSIDE RECORDS SUMMARY | 2024-09-15 15:41 | XMS_ITS | Patient Health Record ---
Author Organization [facility] Address [address] [place] [address] Care Team Providers Care Evidence Specialist Name Role Phone GIANCARLO BISHOP Unavailable [phone] Prudencio ROSADO, Dallas Villagomez Unavailable Reason For Referral No Information Problems Problem Type SNOMED Code ICD Code Onset Dates Problem Status W/U Status Risk Notes Problem Chronic kidney disease stage 3 (disorder) (677633640) Chronic kidney disease, stage 3 unspecified (N18.30) 07/22/2022 Active confirmed Encounters Encounter Location Date Provider Diagnosis [facility] [address] [place] [phone] 11/09/2023 GIANCARLO BISHOP [facility] [address] [place] [address] 07/14/2024 GIANCARLO BISHOP [facility] [address] [place] [phone] 07/20/2024 GIANCARLO BISHOP [email or web address] [facility] [address] [facility] [address] [place] [phone] 07/21/2024 GIANCARLO BISHOP Plan Of Treatment No Information Insurance Providers Payer Name Payer Address Payer Phone Subscriber Number Group Number Insured Name Patient Relationship to Insured Coverage Start Date Coverage End Date [facility] Medicare Advantage [id number] [place] [address] [id number] WHITLEY DODD Self - patient is the insured
--- OUTSIDE RECORDS SUMMARY | 2024-09-15 15:41 | XMS_ITS | Clinical Summary ---
Author Organization [facility] Facility Address [address] [address] Care Team Providers Care Railroad Commissioner Name Role Phone Mart Pimentel MD Primary [...] Visit [facility] [address] [place] [address] Dallas Flannery MD [address] [phone] Health Maintenance Due Date Last Done Comments Pneumococcal Vaccine: 50+ Ye ars (1 of 2 - PCV) 1970 Colorectal Cancer Screening: Annual FOBT 2000 Colorectal Cancer Screening: Colonoscopy 2000 Colorectal Cancer Screening: Sigmoidoscopy 2000 Influenza Vaccine (#1) 2024 01/04/2007 Hepatitis B Vaccine Aged Out No longe r eligible based on patient's age to complete this topic Insurance [facility] Care Teams Railroad Commissioner Relationship Specialty Start Date End Date Mart Pimentel MD PCP - General 03/12/20
--- OUTSIDE RECORDS SUMMARY | 2024-09-15 15:41 | XMS_ITS | Clinical Summary ---
Author Organization [facility] Address [address] [place] [address] Care Team Providers Care Chocolate Maker Name Role Phone Mart Pimentel MD Primary Care Provider +1- [phone] Allergies Active Allergy Reactions Criticality Noted Date [...] age to complete this topic Care Teams Chocolate Maker Relationship Specialty Start Date End Date Mart Pimentel MD [address] [place] [address] PCP - General Internal Medicine 09/10/20
== END 2024-09-15 15:15 | disposition home or self-care (01) ==
LOC: HO.HOS 14:58
PROVIDERS: PCP Internal Medicine; Visit Provider Orthopaedic Surgery
DX: M17.0 Bilateral primary osteoarthritis of knee (principal)
CPT/HCPCS: 20610

== ENCOUNTER → 2024-09-15 14:57 | Outpatient (BNVA) | payer MEDICARE, SELFPAY | PROVIDERS: PCP Internal Medicine; Visit Provider Orthopaedic Surgery | DX: M17.0 Bilateral primary osteoarthritis of knee (principal) | CPT/HCPCS: 20610; J2003; J7323 ==